=== PATIENT | female | born 1960 | race African-American/Black ===

== ENCOUNTER 2016-11-16 13:44 | Inpatient (IN) | payer MEDICARE, OTHER ==
[~2016-11-16] VITALS: Ht 170.2 cm; Wt 95.3 kg
[2016-11-16] MEDS ORDERED: IV NORMAL SALINE 1000ML BAG 1,000 ML IV ONE ×4 (15:45→17:30)
--- NOTE | 2016-11-16 15:50 | PHYS DOC ---
Past Medical History Past Medical History: Diabetes-Type II, Hypertension Adult General Chief Complaint Chief Complaint: LOWER EXTREMITY SWELLING HPI HPI Patient is a 55 year old female with history of uncontrolled diabetes type 2, hypertension, who presents today with 2 complaints. Patient's complaining of bilateral lower extremity swelling that has been going on for the last 2 or 3 days. Patient denies any injury. Patient states she's had similar event before. Denies any history of heart failure. Patient's also complaining of sores on her buttocks that she states she noticed a small morning. Patient denies any known injury. Denies any drainage from the areas. Denies any history of MRSA. She states she does not have a PCP and does not take any medications. Review of Systems Review of Systems Constitutional: Denies fever or chills [] Eyes: Denies change in visual acuity, redness, or eye pain [] HENT: Denies nasal congestion or sore throat [] Respiratory: Denies cough or shortness of breath [] Cardiovascular: Bilateral lower extremity swelling GI: Denies abdominal pain, nausea, vomiting, bloody stools or diarrhea [] : Denies dysuria or hematuria [] Musculoskeletal: Denies back pain or joint pain [] Integument: Sores on her buttocks Neurologic: Denies headache, focal weakness or sensory changes [] Endocrine: Denies polyuria or polydipsia [] Current Medications Current Medications Current Medications Medications (Trade) Dose Ordered Sig/Jean Start Time Stop Time Status Last Admin Dose Admin Sodium Chloride 1,000 ml @ 1,000 mls/hr 1X ONCE 11/16/16 16:45 11/16/16 17:44 DC 11/16/16 18:00 1,000 MLS/HR Allergies Allergies Allergies Coded Allergies Type Severity Reaction Last Updated Verified No Known Drug Allergies 11/16/16 No Physical Exam Physical Exam Constitutional: Well developed, well nourished, no acute distress, non-toxic appearance. [] HENT: Normocephalic, atraumatic, bilateral external ears normal, oropharynx moist, no oral exudates, nose normal. [] Eyes: PERRLA, EOMI, conjunctiva normal, no discharge. [] Neck: Normal range of motion, no tenderness, supple, no stridor. [] Cardiovascular:Heart rate regular rhythm, no murmur [] Lungs & Thorax: Bilateral breath sounds clear to auscultation [] Abdomen: Bowel sounds normal, soft, no tenderness, no masses, no pulsatile masses. [] Skin: Warm, dry, buttocks with multiple old wounds. stage two ulcers on buttocks , left buttock 3X0.4cm,,2X0.3cm, right buttock 2X1cm, 2X1cm, 1X1 cm, crack of buttock 0.5 cm 0.2 cm and 1X0.1 cm. None of the areas appear infected. Back: No tenderness, no CVA tenderness. [] Extremities: No tenderness, no cyanosis, no clubbing, ROM intact, bilateral lower extremities with +3 edema. Neurologic: Alert and oriented X 3, normal motor function, normal sensory function, no focal deficits noted. [] Psychologic: Affect normal, judgement normal, mood normal. [] Current Patient Data Vital Signs Vital Signs Date Time Temp Pulse Resp B/P (MAP) Pulse Ox O2 Delivery O2 Flow Rate FiO2 11/16/16 17:00 76 154/77 (102) Room Air 11/16/16 16:30 98 11/16/16 15:15 98.5 18 98.5 Lab Values Laboratory Tests Test 11/16/16 15:33 11/16/16 15:40 Urine Collection Type Unknown Urine Color Yellow Urine Clarity Clear Urine pH 7.0 Urine Specific [place] >=1.030 Urine Protein Negative mg/dL (NEG-TRACE) Urine Glucose (UA) >=1000 mg/dL (NEG) Urine Ketones (Stick) Negative mg/dL (NEG) Urine Blood Negative (NEG) Urine Nitrite Negative (NEG) Urine Bilirubin Negative (NEG) Urine Urobilinogen Dipstick 0.2 mg/dL (0.2 mg/dL) Urine Leukocyte Esterase Negative (NEG) Urine RBC 0 /HPF (0-2) Urine WBC 1-4 /HPF (0-4) Urine Squamous Epithelial Cells Few /LPF Urine Amorphous Sediment Present /HPF Urine Bacteria Few /HPF (0-FEW) Urine Opiates Screen Neg (NEG) Urine Methadone Screen Neg (NEG) Urine Barbiturates Neg (NEG) Urine Phencyclidine Screen Neg (NEG) Urine Amphetamine/Methamphetamine Neg (NEG) Urine Benzodiazepines Screen Neg (NEG) Urine Cocaine Screen Pos (NEG) Urine Cannabinoids Screen Neg (NEG) Urine Ethyl Alcohol Neg (NEG) White Blood Count 7.7 x10^3/uL (4.0-11.0) Red Blood Count 4.90 x10^6/uL (3.50-5.40) Hemoglobin 14.2 g/dL (12.0-15.5) Hematocrit 44.1 % (36.0-47.0) Mean Corpuscular Volume 90 fL (79-100) Mean Corpuscular Hemoglobin 29 pg (25-35) Mean Corpuscular Hemoglobin Concent 32 g/dL (31-37) Red Cell Distribution Width 14.0 % (11.5-14.5) Platelet Count 193 x10^3/uL (140-400) Neutrophils (%) (Auto) 72 % (31-73) Lymphocytes (%) (Auto) 20 % (24-48) L Monocytes (%) (Auto) 6 % (0-9) Eosinophils (%) (Auto) 1 % (0-3) Basophils (%) (Auto) 1 % (0-3) Neutrophils # (Auto) 5.6 x10^3uL (1.8-7.7) Lymphocytes # (Auto) 1.6 x10^3/uL (1.0-4.8) Monocytes # (Auto) 0.4 x10^3/uL (0.0-1.1) Eosinophils # (Auto) 0.1 x10^3/uL (0.0-0.7) Basophils # (Auto) 0.1 x10^3/uL (0.0-0.2) Prothrombin Time 11.1 SEC (11.7-14.0) L Prothrombin Time INR 0.9 (0.8-1.1) Sodium Level 134 mmol/L (136-145) L Potassium Level 4.0 mmol/L (3.5-5.1) Chloride Level 97 mmol/L (98-107) L Carbon Dioxide Level 32 mmol/L (21-32) Anion Gap 5 (6-14) L Blood Urea Nitrogen 10 mg/dL (7-20) Creatinine 1.0 mg/dL (0.6-1.0) Estimated GFR (Cockcroft-Gault) 70.2 BUN/Creatinine Ratio 10 (6-20) Glucose Level 588 mg/dL (70-99) *H Calcium Level 9.6 mg/dL (8.5-10.1) Magnesium Level 2.1 mg/dL (1.8-2.4) Total Bilirubin 0.3 mg/dL (0.2-1.0) Aspartate Amino Transferase (AST) 12 U/L (15-37) L Alanine Aminotransferase (ALT) 21 U/L (14-59) Alkaline Phosphatase 200 U/L (46-116) H Creatine Kinase 135 U/L (26-192) Creatine Kinase MB (Mass) 0.9 ng/mL (0.0-3.6) Creatine Kinase MB Relative Index 0.7 % (0-4) Troponin I Quantitative 0.018 ng/mL (0.000-0.055) GI-Swv-S-Type Natriuretic Peptide 29 pg/mL (0-124) Total Protein 8.2 g/dL (6.4-8.2) Albumin 3.3 g/dL (3.4-5.0) L Albumin/Globulin Ratio 0.7 (1.0-1.7) L Laboratory Tests 11/16/16 15:40 Laboratory Tests 11/16/16 15:40 EKG EKG 16:[address] Stuart, sinus rhythm, leftward axis heart rate 73 no STEMI Radiology/Procedures Radiology/Procedures []PROCEDURE: PORTABLE CHEST 1V Portable chest, 11/16/2016: History: Leg swelling The heart size and pulmonary vascularity are normal. No pulmonary infiltrates are seen. There is no evidence of pleural fluid. Mild spurring is present in the spine. IMPRESSION: No acute cardiopulmonary abnormality is detected. DICTATED and SIGNED BY: PHILIPP MACIEL MD DATE: 11/16/16 1612 CC: MART LIRA [employer]; NO PCP ~ Course & Med Decision Making Course & Med Decision Making Pertinent Labs and Imaging studies reviewed. (See chart for details) This is a 55-year-old female patient with history of diabetes type 2 and hypertension who presents today with bilateral lower extremity swelling and wounds on her buttocks. She states the swelling has been there for 2 days and she noted the wounds today on her buttocks. The wounds appear old. CBC with no acute findings, CMP with glucose of 588, anion gap is 5, patient is in hyperosmolar hyperglycemic state. BNP is normal chest xray was negative for any acute findings. Troponin is normal, CK-MB is normal. Urine with no infection , no ketones. Patient was given 3 L of IV fluids in the ED and admitted with more IV fluids. 17:[address] Hdez was accepted patient for admission. Dragon Disclaimer Dragon Disclaimer This electronic medical record was generated, in whole or in part, using a voice recognition dictation system. Departure Departure Impression: Primary Impression: Hyperosmolarity syndrome Additional Impressions: Hyperglycemia Wound, open, buttock Disposition: 09 ADMITTED INPATIENT Condition: STABLE Problem Qualifiers Additional Impressions: Wound, open, buttock Encounter type: initial encounter Laterality: unspecified laterality Qualified Codes: S31.809A - Unspecified open wound of unspecified buttock, initial encounter MART LIRA [employer] Nov 16, 2016 15:50
[2016-11-16 15:57] LABS: BASO # 0.1 x10^3/uL (0.0-0.2); BASO % 1 % (0-3); EOS % 1 % (0-3); HEMATOCRIT 44.1 % (36.0-47.0); HEMOGLOBIN 14.2 g/dL (12.0-15.5); LYMPH # 1.6 x10^3/uL (1.0-4.8); LYMPH % 20 % (24-48); MEAN CORPUSCULAR HEMOGLOBIN 29 pg (25-35); MEAN CORPUSCULAR HGB CONC 32 g/dL (31-37); MEAN CORPUSCULAR VOLUME 90 fL (79-100); MONO % 6 % (0-9); NEUT % 72 % (31-73); PLATELET COUNT 193 x10^3/uL (140-400); WHITE BLOOD COUNT 7.7 x10^3/uL (4.0-11.0)
[2016-11-16 15:59] LABS: BILIRUBIN,URINE NEGATIVE (NEG); GLUCOSE,URINE >=1000 mg/dL (NEG)
[2016-11-16 16:00] LABS: NITRITE,URINE NEGATIVE (NEG); PROTEIN,URINE NEGATIVE (NEG-TRACE); UROBILINOGEN,URINE 0.2 mg/dL (0.2 mg/dL)
[2016-11-16 16:04] LABS: BACTERIA,URINE FEW /HPF (0-FEW); RBC,URINE 0 /HPF (0-2); SQUAMOUS EPITHELIAL CELL,UR FEW /LPF
[2016-11-16 16:06] LABS: INR 0.9 (0.8-1.1); PROTHROMBIN TIME PATIENT 11.1 SEC (11.7-14.0)
[2016-11-16 16:06] LABS: BARBITURATES NEG (NEG); BENZODIAZEPINES NEG (NEG); CANNABINOIDS NEG (NEG); COCAINE POS (NEG); METHADONE NEG (NEG); OPIATES NEG (NEG); PHENCYCLIDINE NEG (NEG)
--- NOTE | 2016-11-16 16:15 | RAD ---
Portable chest, 11/16/2016: History: Leg swelling The heart size and pulmonary vascularity are normal. No pulmonary infiltrates are seen. There is no evidence of pleural fluid. Mild spurring is present in the spine. IMPRESSION: No acute cardiopulmonary abnormality is detected.
[2016-11-16 16:35] LABS: ALBUMIN 3.3 g/dL (3.4-5.0); ALBUMIN/GLOBULIN RATIO 0.7 (1.0-1.7); CALCIUM 9.6 mg/dL (8.5-10.1); GFR 70.2; TOTAL BILIRUBIN 0.3 mg/dL (0.2-1.0); TOTAL PROTEIN 8.2 g/dL (6.4-8.2)
[2016-11-16 16:36] LABS: CKMB MASS 0.9 ng/mL (0.0-3.6)
[2016-11-16] MEDS ORDERED: INSULIN ASPART 300 UNITS/3 ML INSULN.PEN SQ SCH (17:21)
[2016-11-16] MEDS ORDERED: MORPHINE SULFATE 2 MG/ML DISP.SYRIN. IV PRN (17:30)
[2016-11-16] MEDS ORDERED: ONDANSETRON PF 4 MG/2 ML VIAL. IV PRN (17:30)
[2016-11-16] MEDS ORDERED: DEXTROSE 50% 25 GM / 50ML DISP.SYRIN. IV PRN ×2 (17:30→23:45)
--- NOTE | 2016-11-16 17:38 | EKG ---
[facility] [address] [place] [address] Test Date: 2016-11-16 Test Time: 16:24:02 Pat Name: ALPHONSO VILLARREAL Department: Room: Gender: F Professor Of Surgery: : 1960 Requested By: MART LIRA Order Number: [id number] Reading MD: Measurements Intervals Wing Rate: 73 P: 0 MO: 148 QRS: -9 QRSD: 86 T: 34 QT: 406 QTc: 451 Interpretive Statements SINUS RHYTHM LEFTWARD AXIS QRS(T) CONTOUR ABNORMALITY CONSIDER ANTEROSEPTAL MYOCARDIAL DAMAGE POSSIBLY ABNORMAL ECG RI6.01 No previous ECG available for comparison
[2016-11-16] MEDS ORDERED: ASEN10TA9 PO (21:13)
[2016-11-16] MEDS ORDERED: INSULIN ASPART 300 UNITS/3 ML INSULN.PEN SQ ONE (21:45)
[2016-11-16 23:00] VITALS: BP 150/76
[2016-11-16] MEDS: ZOLPIDEM 5 MG TABLET. PO PRN (23:43)
--- NOTE | 2016-11-17 01:27 | HP ---
ADMIT DATE: 11/16/2016 CHIEF COMPLAINT: Bilateral lower extremity swelling. HISTORY OF PRESENT ILLNESS: The patient is a 55-year-old -[place] woman who presents with hypertension, diabetes as well as depression and insomnia, who presented to the Emergency Room with worsening lower extremity swelling. She relates that this has been going on for a couple of days at least. She denies any injuries or other symptoms. She actually had similar events in the past, but denies any history of heart failure. Also had sores on the area of her buttocks without any draining. She is unaware of having injured herself. Denies any history of MRSA. In the Emergency Room, she was found with glucose of greater than 500. She relates that she has moved from [place], [place] to [place] and has not sought medical attention since then. Over the past three months, she has not had any of her medications except for her psychiatric medications, which she apparently gets from [facility]. PAST MEDICAL HISTORY: Diabetes and hypertension. FAMILY HISTORY: Positive for same. SOCIAL HISTORY: Denies any alcohol or drug use, but smokes about half a pack a day. ALLERGIES: No known drug allergies. HOME MEDICATIONS: Reconciled with [facility]. REVIEW OF SYSTEMS: Positive as per HPI. Rest of organ system review is negative. PHYSICAL EXAMINATION: VITAL SIGNS: From today show a blood pressure of 177/99, heart rate of 80 and respiratory rate at 10. She is afebrile. GENERAL: This is an obese 55-year-old -[place] woman, awake, alert, in no acute distress. HEENT: Shows no scleral icterus. Oral mucosa is pink and moist. NECK: Supple. LUNGS: Clear. HEART: Regular rate and rhythm. ABDOMEN: Has positive bowel sounds. EXTREMITIES: Show 1+ pitting edema bilaterally. SKIN: Warm, soft and dry without any rash. LABORATORY DATA: CBC with a WBC of 7.7, hemoglobin 14.2 and platelets of 193. Chemistries with a BUN and creatinine of 10 and 1. Sodium at 134, potassium 4.0, glucose at 588, alkaline phosphatase at 200, transaminases within normal and albumin at 3.3. Tox screen positive for cocaine. Specific gravity on her urine greater than 1.030. No signs of infection. IMAGING STUDIES: Chest x-ray obtained in the Emergency Room shows no acute cardiopulmonary abnormality. ASSESSMENT AND PLAN: The patient is a 55-year-old woman with severe diabetes due to not getting her medications. We will start on insulin fairly steep scale. We will switch to oral glipizide in the morning. This is the four dollar medication that she should be able to afford. We will continue her home psych medications including Cymbalta and will receive Ambien for sleep as her home medication is not available in our formulary. Once glucoses are fairly well controlled, the patient should be able to be discharged with followup with PCP DUSTIN. GIULIA TOLENTINO MD DR: UR/nts JOB#: [id number] / [id number] ISAC
[2016-11-17 03:00] VITALS: BP 147/75
[2016-11-17 07:00] VITALS: BP 145/73
[2016-11-17 08:21] LABS: BASO % 1 % (0-3); EOS % 2 % (0-3); HEMATOCRIT 37.1 % (36.0-47.0); HEMOGLOBIN 11.9 g/dL (12.0-15.5); LYMPH % 28 % (24-48); MEAN CORPUSCULAR HEMOGLOBIN 29 pg (25-35); MEAN CORPUSCULAR HGB CONC 32 g/dL (31-37); MEAN CORPUSCULAR VOLUME 89 fL (79-100); MONO % 6 % (0-9); NEUT % 64 % (31-73); PLATELET COUNT 163 x10^3/uL (140-400); RED BLOOD COUNT 4.15 x10^6/uL (3.50-5.40); RED CELL DISTRIBUTION WIDTH 13.9 % (11.5-14.5); WHITE BLOOD COUNT 7.1 x10^3/uL (4.0-11.0)
[2016-11-17 08:40] LABS: CALCIUM 8.6 mg/dL (8.5-10.1); CREATININE 0.6 mg/dL (0.6-1.0); GFR 126.5; POTASSIUM 3.6 mmol/L (3.5-5.1)
[2016-11-17] MEDS: glipiZIDE 5 MG TABLET PO SCH ×2 (08:45→17:28)
[2016-11-17] MEDS: ACETAMINOPHEN 325 MG TABLET. PO PRN ×2 (08:45→14:56)
[2016-11-17] MEDS: DULoxetine HCL 30 MG CAPSULE.DR PO SCH (08:45)
[2016-11-17] MEDS: INSULIN ASPART 300 UNITS/3 ML INSULN.PEN SQ SCH ×3 (08:50→17:32)
[2016-11-17] MEDS ORDERED: FLU VACC QS2017-18 (36MOS+)/PF 0.5 ML SYRINGE. VAX IM ONE (09:00)
[2016-11-17] MEDS ORDERED: LISINOPRIL 10 MG TABLET PO SCH (09:00)
[2016-11-17] MEDS ORDERED: INFLUENZA VAX SCREEN BY RX. MC ONE (09:00)
[2016-11-17 11:00] VITALS: BP 146/76
[2016-11-17] MEDS ORDERED: DEXTROSE 50% 25 GM / 50ML DISP.SYRIN. IV PRN (12:30)
[2016-11-17] MEDS ORDERED: ONDANSETRON PF 4 MG/2 ML VIAL. IV PRN (14:15)
[2016-11-17] MEDS ORDERED: ACETAMINOPHEN 325 MG TABLET. PO PRN (14:15)
[2016-11-17] MEDS ORDERED: hydrALAZINE 20 MG/ML VIAL. IVP PRN (14:15)
[2016-11-17] MEDS ORDERED: DOCUSATE SODIUM 100 MG CAPSULE. PO PRN (14:15)
[2016-11-17] MEDS ORDERED: MORPHINE SULFATE 2 MG/ML DISP.SYRIN. IV PRN (14:15)
--- NOTE | 2016-11-17 14:18 | PDOC ---
PROGRESS NOTES Chief Complaint Chief Complaint bl buttock superficial wound , + gram + cocci uncontrolled dm2 accerlerated htn drug abuse with cocaine plan: check hba1c cont glipizide, add levmier 10u qhs, ssi wound care add bactrium add lisinopril 20mg daily dvt ppx History of Present Illness History of Present Illness ROS: no fever, chills, sob or chest pain hyperglycemia bl buttock superficial wound Vitals Vitals Vital Signs Date Time Temp Pulse Resp B/P (MAP) Pulse Ox O2 Delivery O2 Flow Rate FiO2 11/17/16 11:00 97.5 69 20 146/76 (99) 97 Room Air 97.5 Physical Exam General: Alert, Oriented X3, Cooperative Heart: Regular rate, Normal S1, Normal S2 Lungs: Clear, Wheezing Abdomen: Normal bowel sounds, Soft Extremities: No clubbing, No cyanosis Skin: Other (bl small superfical buttock wound ) Labs LABS Laboratory Tests Test 11/16/16 15:33 11/16/16 15:40 11/16/16 17:48 11/16/16 19:17 Urine Collection Type Unknown Urine Color Yellow Urine Clarity Clear Urine pH 7.0 Urine Specific Gilman >=1.030 Urine Protein Negative mg/dL (NEG-TRACE) Urine Glucose (UA) >=1000 mg/dL (NEG) Urine Ketones (Stick) Negative mg/dL (NEG) Urine Blood Negative (NEG) Urine Nitrite Negative (NEG) Urine Bilirubin Negative (NEG) Urine Urobilinogen Dipstick 0.2 mg/dL (0.2 mg/dL) Urine Leukocyte Esterase Negative (NEG) Urine RBC 0 /HPF (0-2) Urine WBC 1-4 /HPF (0-4) Urine Squamous Epithelial Cells Few /LPF Urine Amorphous Sediment Present /HPF Urine Bacteria Few /HPF (0-FEW) Urine Opiates Screen Neg (NEG) Urine Methadone Screen Neg (NEG) Urine Barbiturates Neg (NEG) Urine Phencyclidine Screen Neg (NEG) Urine Amphetamine/Methamphetamine Neg (NEG) Urine Benzodiazepines Screen Neg (NEG) Urine Cocaine Screen Pos (NEG) Urine Cannabinoids Screen Neg (NEG) Urine Ethyl Alcohol Neg (NEG) White Blood Count 7.7 x10^3/uL (4.0-11.0) Red Blood Count 4.90 x10^6/uL (3.50-5.40) Hemoglobin 14.2 g/dL (12.0-15.5) Hematocrit 44.1 % (36.0-47.0) Mean Corpuscular Volume 90 fL (79-100) Mean Corpuscular Hemoglobin 29 pg (25-35) Mean Corpuscular Hemoglobin Concent 32 g/dL (31-37) Red Cell Distribution Width 14.0 % (11.5-14.5) Platelet Count 193 x10^3/uL (140-400) Neutrophils (%) (Auto) 72 % (31-73) Lymphocytes (%) (Auto) 20 % (24-48) Monocytes (%) (Auto) 6 % (0-9) Eosinophils (%) (Auto) 1 % (0-3) Basophils (%) (Auto) 1 % (0-3) Neutrophils # (Auto) 5.6 x10^3uL (1.8-7.7) Lymphocytes # (Auto) 1.6 x10^3/uL (1.0-4.8) Monocytes # (Auto) 0.4 x10^3/uL (0.0-1.1) Eosinophils # (Auto) 0.1 x10^3/uL (0.0-0.7) Basophils # (Auto) 0.1 x10^3/uL (0.0-0.2) Prothrombin Time 11.1 SEC (11.7-14.0) Prothromb Time International Ratio 0.9 (0.8-1.1) Sodium Level 134 mmol/L (136-145) Potassium Level 4.0 mmol/L (3.5-5.1) Chloride Level 97 mmol/L (98-107) Carbon Dioxide Level 32 mmol/L (21-32) Anion Gap 5 (6-14) Blood Urea Nitrogen 10 mg/dL (7-20) Creatinine 1.0 mg/dL (0.6-1.0) Estimated GFR (Cockcroft-Gault) 70.2 BUN/Creatinine Ratio 10 (6-20) Glucose Level 588 mg/dL (70-99) Calcium Level 9.6 mg/dL (8.5-10.1) Magnesium Level 2.1 mg/dL (1.8-2.4) Total Bilirubin 0.3 mg/dL (0.2-1.0) Aspartate Amino Transf (AST/SGOT) 12 U/L (15-37) Alanine Aminotransferase (ALT/SGPT) 21 U/L (14-59) Alkaline Phosphatase 200 U/L (46-116) Creatine Kinase 135 U/L (26-192) Creatine Kinase MB (Mass) 0.9 ng/mL (0.0-3.6) Creatine Kinase MB Relative Index 0.7 % (0-4) Troponin I Quantitative 0.018 ng/mL (0.000-0.055) BJ-Hcx-W-Type Natriuretic Peptide 29 pg/mL (0-124) Total Protein 8.2 g/dL (6.4-8.2) Albumin 3.3 g/dL (3.4-5.0) Albumin/Globulin Ratio 0.7 (1.0-1.7) Glucose (Fingerstick) 380 mg/dL (70-99) 369 mg/dL (70-99) Test 11/16/16 20:42 11/17/16 07:44 11/17/16 07:46 11/17/16 11:35 Glucose (Fingerstick) 328 mg/dL (70-99) 207 mg/dL (70-99) 209 mg/dL (70-99) White Blood Count 7.1 x10^3/uL (4.0-11.0) Red Blood Count 4.15 x10^6/uL (3.50-5.40) Hemoglobin 11.9 g/dL (12.0-15.5) Hematocrit 37.1 % (36.0-47.0) Mean Corpuscular Volume 89 fL (79-100) Mean Corpuscular Hemoglobin 29 pg (25-35) Mean Corpuscular Hemoglobin Concent 32 g/dL (31-37) Red Cell Distribution Width 13.9 % (11.5-14.5) Platelet Count 163 x10^3/uL (140-400) Neutrophils (%) (Auto) 64 % (31-73) Lymphocytes (%) (Auto) 28 % (24-48) Monocytes (%) (Auto) 6 % (0-9) Eosinophils (%) (Auto) 2 % (0-3) Basophils (%) (Auto) 1 % (0-3) Neutrophils # (Auto) 4.6 x10^3uL (1.8-7.7) Lymphocytes # (Auto) 2.0 x10^3/uL (1.0-4.8) Monocytes # (Auto) 0.4 x10^3/uL (0.0-1.1) Eosinophils # (Auto) 0.1 x10^3/uL (0.0-0.7) Basophils # (Auto) 0.0 x10^3/uL (0.0-0.2) Sodium Level 138 mmol/L (136-145) Potassium Level 3.6 mmol/L (3.5-5.1) Chloride Level 105 mmol/L (98-107) Carbon Dioxide Level 29 mmol/L (21-32) Anion Gap 4 (6-14) Blood Urea Nitrogen 6 mg/dL (7-20) Creatinine 0.6 mg/dL (0.6-1.0) Estimated GFR (Cockcroft-Gault) 126.5 Glucose Level 220 mg/dL (70-99) Calcium Level 8.6 mg/dL (8.5-10.1) Assessment and Plan Assessmemt and Plan Problems Medical Problems: (1) Wound, open, buttock Status: Acute Problems: Comment Review of Relevant I have reviewed the following items luther (where applicable) has been applied. Labs Laboratory Tests Test 11/16/16 15:33 11/16/16 15:40 11/16/16 17:48 11/16/16 19:17 Urine Collection Type Unknown Urine Color Yellow Urine Clarity Clear Urine pH 7.0 Urine Specific Gilman >=1.030 Urine Protein Negative mg/dL (NEG-TRACE) Urine Glucose (UA) >=1000 mg/dL (NEG) Urine Ketones (Stick) Negative mg/dL (NEG) Urine Blood Negative (NEG) Urine Nitrite Negative (NEG) Urine Bilirubin Negative (NEG) Urine Urobilinogen Dipstick 0.2 mg/dL (0.2 mg/dL) Urine Leukocyte Esterase Negative (NEG) Urine RBC 0 /HPF (0-2) Urine WBC 1-4 /HPF (0-4) Urine Squamous Epithelial Cells Few /LPF Urine Amorphous Sediment Present /HPF Urine Bacteria Few /HPF (0-FEW) Urine Opiates Screen Neg (NEG) Urine Methadone Screen Neg (NEG) Urine Barbiturates Neg (NEG) Urine Phencyclidine Screen Neg (NEG) Urine Amphetamine/Methamphetamine Neg (NEG) Urine Benzodiazepines Screen Neg (NEG) Urine Cocaine Screen Pos (NEG) Urine Cannabinoids Screen Neg (NEG) Urine Ethyl Alcohol Neg (NEG) White Blood Count 7.7 x10^3/uL (4.0-11.0) Red Blood Count 4.90 x10^6/uL (3.50-5.40) Hemoglobin 14.2 g/dL (12.0-15.5) Hematocrit 44.1 % (36.0-47.0) Mean Corpuscular Volume 90 fL (79-100) Mean Corpuscular Hemoglobin 29 pg (25-35) Mean Corpuscular Hemoglobin Concent 32 g/dL (31-37) Red Cell Distribution Width 14.0 % (11.5-14.5) Platelet Count 193 x10^3/uL (140-400) Neutrophils (%) (Auto) 72 % (31-73) Lymphocytes (%) (Auto) 20 % (24-48) Monocytes (%) (Auto) 6 % (0-9) Eosinophils (%) (Auto) 1 % (0-3) Basophils (%) (Auto) 1 % (0-3) Neutrophils # (Auto) 5.6 x10^3uL (1.8-7.7) Lymphocytes # (Auto) 1.6 x10^3/uL (1.0-4.8) Monocytes # (Auto) 0.4 x10^3/uL (0.0-1.1) Eosinophils # (Auto) 0.1 x10^3/uL (0.0-0.7) Basophils # (Auto) 0.1 x10^3/uL (0.0-0.2) Prothrombin Time 11.1 SEC (11.7-14.0) Prothromb Time International Ratio 0.9 (0.8-1.1) Sodium Level 134 mmol/L (136-145) Potassium Level 4.0 mmol/L (3.5-5.1) Chloride Level 97 mmol/L (98-107) Carbon Dioxide Level 32 mmol/L (21-32) Anion Gap 5 (6-14) Blood Urea Nitrogen 10 mg/dL (7-20) Creatinine 1.0 mg/dL (0.6-1.0) Estimated GFR (Cockcroft-Gault) 70.2 BUN/Creatinine Ratio 10 (6-20) Glucose Level 588 mg/dL (70-99) Calcium Level 9.6 mg/dL (8.5-10.1) Magnesium Level 2.1 mg/dL (1.8-2.4) Total Bilirubin 0.3 mg/dL (0.2-1.0) Aspartate Amino Transf (AST/SGOT) 12 U/L (15-37) Alanine Aminotransferase (ALT/SGPT) 21 U/L (14-59) Alkaline Phosphatase 200 U/L (46-116) Creatine Kinase 135 U/L (26-192) Creatine Kinase MB (Mass) 0.9 ng/mL (0.0-3.6) Creatine Kinase MB Relative Index 0.7 % (0-4) Troponin I Quantitative 0.018 ng/mL (0.000-0.055) DT-Tnx-Q-Type Natriuretic Peptide 29 pg/mL (0-124) Total Protein 8.2 g/dL (6.4-8.2) Albumin 3.3 g/dL (3.4-5.0) Albumin/Globulin Ratio 0.7 (1.0-1.7) Glucose (Fingerstick) 380 mg/dL (70-99) 369 mg/dL (70-99) Test 11/16/16 20:42 11/17/16 07:44 11/17/16 07:46 11/17/16 11:35 Glucose (Fingerstick) 328 mg/dL (70-99) 207 mg/dL (70-99) 209 mg/dL (70-99) White Blood Count 7.1 x10^3/uL (4.0-11.0) Red Blood Count 4.15 x10^6/uL (3.50-5.40) Hemoglobin 11.9 g/dL (12.0-15.5) Hematocrit 37.1 % (36.0-47.0) Mean Corpuscular Volume 89 fL (79-100) Mean Corpuscular Hemoglobin 29 pg (25-35) Mean Corpuscular Hemoglobin Concent 32 g/dL (31-37) Red Cell Distribution Width 13.9 % (11.5-14.5) Platelet Count 163 x10^3/uL (140-400) Neutrophils (%) (Auto) 64 % (31-73) Lymphocytes (%) (Auto) 28 % (24-48) Monocytes (%) (Auto) 6 % (0-9) Eosinophils (%) (Auto) 2 % (0-3) Basophils (%) (Auto) 1 % (0-3) Neutrophils # (Auto) 4.6 x10^3uL (1.8-7.7) Lymphocytes # (Auto) 2.0 x10^3/uL (1.0-4.8) Monocytes # (Auto) 0.4 x10^3/uL (0.0-1.1) Eosinophils # (Auto) 0.1 x10^3/uL (0.0-0.7) Basophils # (Auto) 0.0 x10^3/uL (0.0-0.2) Sodium Level 138 mmol/L (136-145) Potassium Level 3.6 mmol/L (3.5-5.1) Chloride Level 105 mmol/L (98-107) Carbon Dioxide Level 29 mmol/L (21-32) Anion Gap 4 (6-14) Blood Urea Nitrogen 6 mg/dL (7-20) Creatinine 0.6 mg/dL (0.6-1.0) Estimated GFR (Cockcroft-Gault) 126.5 Glucose Level 220 mg/dL (70-99) Calcium Level 8.6 mg/dL (8.5-10.1) Laboratory Tests Test 11/16/16 15:33 11/16/16 15:40 11/16/16 17:48 11/16/16 19:17 Urine Collection Type Unknown Urine Color Yellow Urine Clarity Clear Urine pH 7.0 Urine Specific Gilman >=1.030 Urine Protein Negative mg/dL (NEG-TRACE) Urine Glucose (UA) >=1000 mg/dL (NEG) Urine Ketones (Stick) Negative mg/dL (NEG) Urine Blood Negative (NEG) Urine Nitrite Negative (NEG) Urine Bilirubin Negative (NEG) Urine Urobilinogen Dipstick 0.2 mg/dL (0.2 mg/dL) Urine Leukocyte Esterase Negative (NEG) Urine RBC 0 /HPF (0-2) Urine WBC 1-4 /HPF (0-4) Urine Squamous Epithelial Cells Few /LPF Urine Amorphous Sediment Present /HPF Urine Bacteria Few /HPF (0-FEW) Urine Opiates Screen Neg (NEG) Urine Methadone Screen Neg (NEG) Urine Barbiturates Neg (NEG) Urine Phencyclidine Screen Neg (NEG) Urine Amphetamine/Methamphetamine Neg (NEG) Urine Benzodiazepines Screen Neg (NEG) Urine Cocaine Screen Pos (NEG) Urine Cannabinoids Screen Neg (NEG) Urine Ethyl Alcohol Neg (NEG) White Blood Count 7.7 x10^3/uL (4.0-11.0) Red Blood Count 4.90 x10^6/uL (3.50-5.40) Hemoglobin 14.2 g/dL (12.0-15.5) Hematocrit 44.1 % (36.0-47.0) Mean Corpuscular Volume 90 fL (79-100) Mean Corpuscular Hemoglobin 29 pg (25-35) Mean Corpuscular Hemoglobin Concent 32 g/dL (31-37) Red Cell Distribution Width 14.0 % (11.5-14.5) Platelet Count 193 x10^3/uL (140-400) Neutrophils (%) (Auto) 72 % (31-73) Lymphocytes (%) (Auto) 20 % (24-48) Monocytes (%) (Auto) 6 % (0-9) Eosinophils (%) (Auto) 1 % (0-3) Basophils (%) (Auto) 1 % (0-3) Neutrophils # (Auto) 5.6 x10^3uL (1.8-7.7) Lymphocytes # (Auto) 1.6 x10^3/uL (1.0-4.8) Monocytes # (Auto) 0.4 x10^3/uL (0.0-1.1) Eosinophils # (Auto) 0.1 x10^3/uL (0.0-0.7) Basophils # (Auto) 0.1 x10^3/uL (0.0-0.2) Prothrombin Time 11.1 SEC (11.7-14.0) Prothromb Time International Ratio 0.9 (0.8-1.1) Sodium Level 134 mmol/L (136-145) Potassium Level 4.0 mmol/L (3.5-5.1) Chloride Level 97 mmol/L (98-107) Carbon Dioxide Level 32 mmol/L (21-32) Anion Gap 5 (6-14) Blood Urea Nitrogen 10 mg/dL (7-20) Creatinine 1.0 mg/dL (0.6-1.0) Estimated GFR (Cockcroft-Gault) 70.2 BUN/Creatinine Ratio 10 (6-20) Glucose Level 588 mg/dL (70-99) Calcium Level 9.6 mg/dL (8.5-10.1) Magnesium Level 2.1 mg/dL (1.8-2.4) Total Bilirubin 0.3 mg/dL (0.2-1.0) Aspartate Amino Transf (AST/SGOT) 12 U/L (15-37) Alanine Aminotransferase (ALT/SGPT) 21 U/L (14-59) Alkaline Phosphatase 200 U/L (46-116) Creatine Kinase 135 U/L (26-192) Creatine Kinase MB (Mass) 0.9 ng/mL (0.0-3.6) Creatine Kinase MB Relative Index 0.7 % (0-4) Troponin I Quantitative 0.018 ng/mL (0.000-0.055) HB-Lff-K-Type Natriuretic Peptide 29 pg/mL (0-124) Total Protein 8.2 g/dL (6.4-8.2) Albumin 3.3 g/dL (3.4-5.0) Albumin/Globulin Ratio 0.7 (1.0-1.7) Glucose (Fingerstick) 380 mg/dL (70-99) 369 mg/dL (70-99) Test 11/16/16 20:42 11/17/16 07:44 11/17/16 07:46 11/17/16 11:35 Glucose (Fingerstick) 328 mg/dL (70-99) 207 mg/dL (70-99) 209 mg/dL (70-99) White Blood Count 7.1 x10^3/uL (4.0-11.0) Red Blood Count 4.15 x10^6/uL (3.50-5.40) Hemoglobin 11.9 g/dL (12.0-15.5) Hematocrit 37.1 % (36.0-47.0) Mean Corpuscular Volume 89 fL (79-100) Mean Corpuscular Hemoglobin 29 pg (25-35) Mean Corpuscular Hemoglobin Concent 32 g/dL (31-37) Red Cell Distribution Width 13.9 % (11.5-14.5) Platelet Count 163 x10^3/uL (140-400) Neutrophils (%) (Auto) 64 % (31-73) Lymphocytes (%) (Auto) 28 % (24-48) Monocytes (%) (Auto) 6 % (0-9) Eosinophils (%) (Auto) 2 % (0-3) Basophils (%) (Auto) 1 % (0-3) Neutrophils # (Auto) 4.6 x10^3uL (1.8-7.7) Lymphocytes # (Auto) 2.0 x10^3/uL (1.0-4.8) Monocytes # (Auto) 0.4 x10^3/uL (0.0-1.1) Eosinophils # (Auto) 0.1 x10^3/uL (0.0-0.7) Basophils # (Auto) 0.0 x10^3/uL (0.0-0.2) Sodium Level 138 mmol/L (136-145) Potassium Level 3.6 mmol/L (3.5-5.1) Chloride Level 105 mmol/L (98-107) Carbon Dioxide Level 29 mmol/L (21-32) Anion Gap 4 (6-14) Blood Urea Nitrogen 6 mg/dL (7-20) Creatinine 0.6 mg/dL (0.6-1.0) Estimated GFR (Cockcroft-Gault) 126.5 Glucose Level 220 mg/dL (70-99) Calcium Level 8.6 mg/dL (8.5-10.1) Microbiology 11/16/16 Gram Stain - Final, Complete Medications Current Medications Sodium Chloride 1,000 ml @ 1,000 mls/hr 1X ONCE IV Last administered on 15:48; Start 11/16/16 at 15:45; Stop 11/16/16 at 16:44; Status DC Sodium Chloride 1,000 ml @ 1,000 mls/hr 1X ONCE IV Last administered on 17:21; Start 11/16/16 at 16:45; Stop 11/16/16 at 17:44; Status DC Sodium Chloride 1,000 ml @ 1,000 mls/hr 1X ONCE IV Last administered on 18:00; Start 11/16/16 at 16:45; Stop 11/16/16 at 17:44; Status DC Ondansetron HCl (Zofran) 4 mg PRN Q8HRS PRN IV NAUSEA/VOMITING; Start 11/16/16 at 17:30; Stop 11/17/16 at 17:29 Morphine Sulfate 2 mg PRN Q2HR PRN IV PAIN; Start 11/16/16 at 17:30; Stop 11/16 at 23:47; Status DC Acetaminophen (Tylenol) 650 mg PRN Q4HRS PRN PO FEVER Last administered on 11/17 08:45; Start 11/16/16 at 17:30; Stop 11/17/16 at 17:29 Insulin Aspart (NovoLOG) 0-5 UNITS TIDWMEALS SQ Last administered on 11/16/16 18:30; Start 11/16/16 at 17:21; Stop 11/16/16 at 23:47; Status DC Dextrose (Dextrose 50%-Water Syringe) 12.5 gm PRN Q15MIN PRN IV SEE COMMENTS; Start 11/16/16 at 17:30; Stop 11/17/16 at 12:31; Status DC Sodium Chloride 1,000 ml @ 125 mls/hr 1X ONCE IV Last administered on 18:00; Start 11/16/16 at 17:30; Stop 11/17/16 at 01:29; Status DC Insulin Aspart (NovoLOG) 3 units 1X ONCE SQ Last administered on 11/16/16 21: 55; Start 11/16/16 at 21:45; Stop 11/16/16 at 21:46; Status DC Zolpidem Tartrate (Ambien) 5 mg PRN QHS PRN PO INSOMNIA Last administered on 23:43; Start 11/16/16 at 23:30 Insulin Aspart (NovoLOG) TIDWMEALS SQ Last administered on 11/17/16 12:18; Start 11/17/16 at 08:00; Stop 11/17/16 at 12:32; Status DC Dextrose (Dextrose 50%-Water Syringe) 12.5 gm PRN Q15MIN PRN IV SEE COMMENTS; Start 11/16/16 at 23:45; Stop 11/17/16 at 12:31; Status DC Duloxetine HCl (Cymbalta) 60 mg DAILY PO Last administered on 11/17/16 08:45; Start 11/17/16 at 09:00 Lisinopril (Prinivil) 10 mg DAILY PO Last administered on 11/17/16 08:45; Start 11/17/16 at 09:00 Glipizide (Glucotrol) 10 mg BIDBFRMEAL PO Last administered on 11/17/16t 08:45 ; Start 11/17/16 at 07:30 Info (Do NOT chart on this placeholder) 1 each 1X ONCE MC ; Start 11/17/16 at 09:00; Stop 11/17/16 at 09:01; Status UNV Influenza Virus Vaccine Quadrival (Fluarix Quad [id number] Syringe) 0.5 ml ONCE ONCE VAX IM ; Start 11/17/16 at 09:00; Stop 11/17/16 at 09:01; Status DC Insulin Detemir (Levemir) 10 units QHS SQ ; Start 11/17/16 at 21:00 Insulin Aspart (NovoLOG) 0-9 UNITS TIDWMEALS SQ ; Start 11/17/16 at 17:00 Dextrose (Dextrose 50%-Water Syringe) 12.5 gm PRN Q15MIN PRN IV SEE COMMENTS; Start 11/17/16 at 12:30 Trimethoprim/ Sulfamethoxazole (Bactrim Ds) 1 tab BID PO ; Start 11/17/16 at 13: 00 Active Scripts Active Reported Saphris (Asenapine Maleate) 10 Mg Tab.subl 110 PO HS Vitals/I & O Vital Sign - Last 24 Hours 11/16/16 11/16/16 11/16/16 11/16/16 15:15 16:30 17:00 17:30 Temp 98.5 98.5 Pulse 89 72 76 Resp 18 B/P (MAP) 122/71 (88) 149/77 (101) 154/77 (102) 160/86 (110) Pulse Ox 96 98 O2 Delivery Room Air Room Air Room Air Room Air 11/16/16 11/16/16 11/16/16 11/16/16 18:00 18:30 20:00 23:00 Temp 97.5 97.5 Pulse 104 80 78 Resp 9 10 16 B/P (MAP) 174/109 (130) 177/99 (125) 150/76 (100) Pulse Ox 96 99 97 O2 Delivery Room Air Room Air Room Air Room Air 11/17/16 11/17/16 11/17/16 11/17/16 03:00 07:00 08:00 08:45 Temp 97.7 98.1 97.7 98.1 Pulse 85 84 84 Resp 16 16 B/P (MAP) 147/75 (99) 145/73 (97) 143/73 Pulse Ox 94 95 O2 Delivery Room Air Room Air Room Air 11/17/16 11:00 Temp 97.5 97.5 Pulse 69 Resp 20 B/P (MAP) 146/76 (99) Pulse Ox 97 O2 Delivery Room Air NAVDEEP KISER MD Nov 17, 2016 14:18
[2016-11-17] MEDS: SMZ/TMP 800/160MG TABLET. PO SCH ×2 (14:55→22:51)
[2016-11-17] MEDS: LISINOPRIL 20 MG TABLET PO SCH (14:55)
[2016-11-17] MEDS: ENOXAPARIN 40 MG/0.4 ML SYRINGE. SQ SCH (14:56)
[2016-11-17 15:22] VITALS: BP 146/76
[2016-11-17 19:00] VITALS: BP 150/69
[2016-11-17] MEDS ORDERED: INSULIN DETEMIR 300 UNITS/3 ML INSULN.PEN. SQ SCH (21:00)
[2016-11-17] MEDS: ZOLPIDEM 5 MG TABLET. PO PRN (22:51)
[2016-11-17 23:00] VITALS: BP 135/72
[2016-11-17] MEDS ORDERED: INSULIN ASPART 300 UNITS/3 ML INSULN.PEN SQ ONE (23:00)
[2016-11-18 03:00] VITALS: BP 144/81
[2016-11-18 05:19] LABS: BASO % 0 % (0-3); EOS % 2 % (0-3); HEMATOCRIT 37.3 % (36.0-47.0); LYMPH # 1.8 x10^3/uL (1.0-4.8); LYMPH % 25 % (24-48); MEAN CORPUSCULAR HEMOGLOBIN 29 pg (25-35); MEAN CORPUSCULAR HGB CONC 32 g/dL (31-37); MEAN CORPUSCULAR VOLUME 89 fL (79-100); MONO % 8 % (0-9); NEUT % 66 % (31-73); PLATELET COUNT 166 x10^3/uL (140-400); RED BLOOD COUNT 4.21 x10^6/uL (3.50-5.40); WHITE BLOOD COUNT 7.2 x10^3/uL (4.0-11.0)
[2016-11-18 05:57] LABS: CALCIUM 8.3 mg/dL (8.5-10.1); CREATININE 0.8 mg/dL (0.6-1.0); GFR 90.8
[2016-11-18 07:00] VITALS: BP 131/60
[2016-11-18] MEDS: SMZ/TMP 800/160MG TABLET. PO SCH ×2 (08:48→20:46)
[2016-11-18] MEDS: LISINOPRIL 20 MG TABLET PO SCH (08:48)
[2016-11-18] MEDS: DULoxetine HCL 30 MG CAPSULE.DR PO SCH (08:48)
[2016-11-18] MEDS: glipiZIDE 5 MG TABLET PO SCH ×2 (08:49→17:02)
[2016-11-18] MEDS: INSULIN ASPART 300 UNITS/3 ML INSULN.PEN SQ SCH ×3 (08:52→17:04)
[2016-11-18 11:00] VITALS: BP 120/63
[2016-11-18] MEDS: ENOXAPARIN 40 MG/0.4 ML SYRINGE. SQ SCH (14:41)
--- NOTE | 2016-11-18 14:44 | PDOC ---
PROGRESS NOTES Chief Complaint Chief Complaint bl buttock superficial wound , + gram + cocci with staph and beta strep for now uncontrolled dm2 accellerated htn drug abuse with cocaine plan: check hba1c cont glipizide, add levmier 15u qhs, ssi. metformin makes her diarrhea wound care pending add bactrium , add vantin add lisinopril 20mg daily dvt ppx dc tmr History of Present Illness History of Present Illness ROS: no fever, chills, sob or chest pain hyperglycemia bl buttock superficial wound Vitals Vitals Vital Signs Date Time Temp Pulse Resp B/P (MAP) Pulse Ox O2 Delivery O2 Flow Rate FiO2 11/18/16 11:00 98.8 74 16 120/63 (82) 97 Room Air 98.8 Physical Exam General: Alert, Oriented X3, Cooperative Heart: Regular rate, Normal S1, Normal S2 Lungs: Clear, Wheezing Abdomen: Normal bowel sounds, Soft Extremities: No clubbing, No cyanosis Skin: Other (bl small superfical buttock wound ) Labs LABS Laboratory Tests Test 11/17/16 17:04 11/17/16 21:31 11/18/16 04:35 11/18/16 07:56 Glucose (Fingerstick) 191 mg/dL (70-99) 244 mg/dL (70-99) 218 mg/dL (70-99) White Blood Count 7.2 x10^3/uL (4.0-11.0) Red Blood Count 4.21 x10^6/uL (3.50-5.40) Hemoglobin 12.0 g/dL (12.0-15.5) Hematocrit 37.3 % (36.0-47.0) Mean Corpuscular Volume 89 fL (79-100) Mean Corpuscular Hemoglobin 29 pg (25-35) Mean Corpuscular Hemoglobin Concent 32 g/dL (31-37) Red Cell Distribution Width 14.0 % (11.5-14.5) Platelet Count 166 x10^3/uL (140-400) Neutrophils (%) (Auto) 66 % (31-73) Lymphocytes (%) (Auto) 25 % (24-48) Monocytes (%) (Auto) 8 % (0-9) Eosinophils (%) (Auto) 2 % (0-3) Basophils (%) (Auto) 0 % (0-3) Neutrophils # (Auto) 4.7 x10^3uL (1.8-7.7) Lymphocytes # (Auto) 1.8 x10^3/uL (1.0-4.8) Monocytes # (Auto) 0.6 x10^3/uL (0.0-1.1) Eosinophils # (Auto) 0.1 x10^3/uL (0.0-0.7) Basophils # (Auto) 0.0 x10^3/uL (0.0-0.2) Sodium Level 137 mmol/L (136-145) Potassium Level 4.0 mmol/L (3.5-5.1) Chloride Level 103 mmol/L (98-107) Carbon Dioxide Level 29 mmol/L (21-32) Anion Gap 5 (6-14) Blood Urea Nitrogen 11 mg/dL (7-20) Creatinine 0.8 mg/dL (0.6-1.0) Estimated GFR (Cockcroft-Gault) 90.8 Glucose Level 216 mg/dL (70-99) Calcium Level 8.3 mg/dL (8.5-10.1) Test 11/18/16 11:09 Glucose (Fingerstick) 214 mg/dL (70-99) Assessment and Plan Assessmemt and Plan Problems Medical Problems: (1) Wound, open, buttock Status: Acute Problems: Comment Review of Relevant I have reviewed the following items luther (where applicable) has been applied. Labs Laboratory Tests Test 11/16/16 15:33 11/16/16 15:40 11/16/16 17:48 11/16/16 19:17 Urine Collection Type Unknown Urine Color Yellow Urine Clarity Clear Urine pH 7.0 Urine Specific [place] >=1.030 Urine Protein Negative mg/dL (NEG-TRACE) Urine Glucose (UA) >=1000 mg/dL (NEG) Urine Ketones (Stick) Negative mg/dL (NEG) Urine Blood Negative (NEG) Urine Nitrite Negative (NEG) Urine Bilirubin Negative (NEG) Urine Urobilinogen Dipstick 0.2 mg/dL (0.2 mg/dL) Urine Leukocyte Esterase Negative (NEG) Urine RBC 0 /HPF (0-2) Urine WBC 1-4 /HPF (0-4) Urine Squamous Epithelial Cells Few /LPF Urine Amorphous Sediment Present /HPF Urine Bacteria Few /HPF (0-FEW) Urine Opiates Screen Neg (NEG) Urine Methadone Screen Neg (NEG) Urine Barbiturates Neg (NEG) Urine Phencyclidine Screen Neg (NEG) Urine Amphetamine/Methamphetamine Neg (NEG) Urine Benzodiazepines Screen Neg (NEG) Urine Cocaine Screen Pos (NEG) Urine Cannabinoids Screen Neg (NEG) Urine Ethyl Alcohol Neg (NEG) White Blood Count 7.7 x10^3/uL (4.0-11.0) Red Blood Count 4.90 x10^6/uL (3.50-5.40) Hemoglobin 14.2 g/dL (12.0-15.5) Hematocrit 44.1 % (36.0-47.0) Mean Corpuscular Volume 90 fL (79-100) Mean Corpuscular Hemoglobin 29 pg (25-35) Mean Corpuscular Hemoglobin Concent 32 g/dL (31-37) Red Cell Distribution Width 14.0 % (11.5-14.5) Platelet Count 193 x10^3/uL (140-400) Neutrophils (%) (Auto) 72 % (31-73) Lymphocytes (%) (Auto) 20 % (24-48) Monocytes (%) (Auto) 6 % (0-9) Eosinophils (%) (Auto) 1 % (0-3) Basophils (%) (Auto) 1 % (0-3) Neutrophils # (Auto) 5.6 x10^3uL (1.8-7.7) Lymphocytes # (Auto) 1.6 x10^3/uL (1.0-4.8) Monocytes # (Auto) 0.4 x10^3/uL (0.0-1.1) Eosinophils # (Auto) 0.1 x10^3/uL (0.0-0.7) Basophils # (Auto) 0.1 x10^3/uL (0.0-0.2) Prothrombin Time 11.1 SEC (11.7-14.0) Prothromb Time International Ratio 0.9 (0.8-1.1) Sodium Level 134 mmol/L (136-145) Potassium Level 4.0 mmol/L (3.5-5.1) Chloride Level 97 mmol/L (98-107) Carbon Dioxide Level 32 mmol/L (21-32) Anion Gap 5 (6-14) Blood Urea Nitrogen 10 mg/dL (7-20) Creatinine 1.0 mg/dL (0.6-1.0) Estimated GFR (Cockcroft-Gault) 70.2 BUN/Creatinine Ratio 10 (6-20) Glucose Level 588 mg/dL (70-99) Calcium Level 9.6 mg/dL (8.5-10.1) Magnesium Level 2.1 mg/dL (1.8-2.4) Total Bilirubin 0.3 mg/dL (0.2-1.0) Aspartate Amino Transf (AST/SGOT) 12 U/L (15-37) Alanine Aminotransferase (ALT/SGPT) 21 U/L (14-59) Alkaline Phosphatase 200 U/L (46-116) Creatine Kinase 135 U/L (26-192) Creatine Kinase MB (Mass) 0.9 ng/mL (0.0-3.6) Creatine Kinase MB Relative Index 0.7 % (0-4) Troponin I Quantitative 0.018 ng/mL (0.000-0.055) JG-Wxt-G-Type Natriuretic Peptide 29 pg/mL (0-124) Total Protein 8.2 g/dL (6.4-8.2) Albumin 3.3 g/dL (3.4-5.0) Albumin/Globulin Ratio 0.7 (1.0-1.7) Glucose (Fingerstick) 380 mg/dL (70-99) 369 mg/dL (70-99) Test 11/16/16 20:42 11/17/16 07:44 11/17/16 07:46 11/17/16 11:35 Glucose (Fingerstick) 328 mg/dL (70-99) 207 mg/dL (70-99) 209 mg/dL (70-99) White Blood Count 7.1 x10^3/uL (4.0-11.0) Red Blood Count 4.15 x10^6/uL (3.50-5.40) Hemoglobin 11.9 g/dL (12.0-15.5) Hematocrit 37.1 % (36.0-47.0) Mean Corpuscular Volume 89 fL (79-100) Mean Corpuscular Hemoglobin 29 pg (25-35) Mean Corpuscular Hemoglobin Concent 32 g/dL (31-37) Red Cell Distribution Width 13.9 % (11.5-14.5) Platelet Count 163 x10^3/uL (140-400) Neutrophils (%) (Auto) 64 % (31-73) Lymphocytes (%) (Auto) 28 % (24-48) Monocytes (%) (Auto) 6 % (0-9) Eosinophils (%) (Auto) 2 % (0-3) Basophils (%) (Auto) 1 % (0-3) Neutrophils # (Auto) 4.6 x10^3uL (1.8-7.7) Lymphocytes # (Auto) 2.0 x10^3/uL (1.0-4.8) Monocytes # (Auto) 0.4 x10^3/uL (0.0-1.1) Eosinophils # (Auto) 0.1 x10^3/uL (0.0-0.7) Basophils # (Auto) 0.0 x10^3/uL (0.0-0.2) Sodium Level 138 mmol/L (136-145) Potassium Level 3.6 mmol/L (3.5-5.1) Chloride Level 105 mmol/L (98-107) Carbon Dioxide Level 29 mmol/L (21-32) Anion Gap 4 (6-14) Blood Urea Nitrogen 6 mg/dL (7-20) Creatinine 0.6 mg/dL (0.6-1.0) Estimated GFR (Cockcroft-Gault) 126.5 Glucose Level 220 mg/dL (70-99) Calcium Level 8.6 mg/dL (8.5-10.1) Test 11/17/16 17:04 11/17/16 21:31 11/18/16 04:35 11/18/16 07:56 Glucose (Fingerstick) 191 mg/dL (70-99) 244 mg/dL (70-99) 218 mg/dL (70-99) White Blood Count 7.2 x10^3/uL (4.0-11.0) Red Blood Count 4.21 x10^6/uL (3.50-5.40) Hemoglobin 12.0 g/dL (12.0-15.5) Hematocrit 37.3 % (36.0-47.0) Mean Corpuscular Volume 89 fL (79-100) Mean Corpuscular Hemoglobin 29 pg (25-35) Mean Corpuscular Hemoglobin Concent 32 g/dL (31-37) Red Cell Distribution Width 14.0 % (11.5-14.5) Platelet Count 166 x10^3/uL (140-400) Neutrophils (%) (Auto) 66 % (31-73) Lymphocytes (%) (Auto) 25 % (24-48) Monocytes (%) (Auto) 8 % (0-9) Eosinophils (%) (Auto) 2 % (0-3) Basophils (%) (Auto) 0 % (0-3) Neutrophils # (Auto) 4.7 x10^3uL (1.8-7.7) Lymphocytes # (Auto) 1.8 x10^3/uL (1.0-4.8) Monocytes # (Auto) 0.6 x10^3/uL (0.0-1.1) Eosinophils # (Auto) 0.1 x10^3/uL (0.0-0.7) Basophils # (Auto) 0.0 x10^3/uL (0.0-0.2) Sodium Level 137 mmol/L (136-145) Potassium Level 4.0 mmol/L (3.5-5.1) Chloride Level 103 mmol/L (98-107) Carbon Dioxide Level 29 mmol/L (21-32) Anion Gap 5 (6-14) Blood Urea Nitrogen 11 mg/dL (7-20) Creatinine 0.8 mg/dL (0.6-1.0) Estimated GFR (Cockcroft-Gault) 90.8 Glucose Level 216 mg/dL (70-99) Calcium Level 8.3 mg/dL (8.5-10.1) Test 11/18/16 11:09 Glucose (Fingerstick) 214 mg/dL (70-99) Laboratory Tests Test 11/17/16 17:04 11/17/16 21:31 11/18/16 04:35 11/18/16 07:56 Glucose (Fingerstick) 191 mg/dL (70-99) 244 mg/dL (70-99) 218 mg/dL (70-99) White Blood Count 7.2 x10^3/uL (4.0-11.0) Red Blood Count 4.21 x10^6/uL (3.50-5.40) Hemoglobin 12.0 g/dL (12.0-15.5) Hematocrit 37.3 % (36.0-47.0) Mean Corpuscular Volume 89 fL (79-100) Mean Corpuscular Hemoglobin 29 pg (25-35) Mean Corpuscular Hemoglobin Concent 32 g/dL (31-37) Red Cell Distribution Width 14.0 % (11.5-14.5) Platelet Count 166 x10^3/uL (140-400) Neutrophils (%) (Auto) 66 % (31-73) Lymphocytes (%) (Auto) 25 % (24-48) Monocytes (%) (Auto) 8 % (0-9) Eosinophils (%) (Auto) 2 % (0-3) Basophils (%) (Auto) 0 % (0-3) Neutrophils # (Auto) 4.7 x10^3uL (1.8-7.7) Lymphocytes # (Auto) 1.8 x10^3/uL (1.0-4.8) Monocytes # (Auto) 0.6 x10^3/uL (0.0-1.1) Eosinophils # (Auto) 0.1 x10^3/uL (0.0-0.7) Basophils # (Auto) 0.0 x10^3/uL (0.0-0.2) Sodium Level 137 mmol/L (136-145) Potassium Level 4.0 mmol/L (3.5-5.1) Chloride Level 103 mmol/L (98-107) Carbon Dioxide Level 29 mmol/L (21-32) Anion Gap 5 (6-14) Blood Urea Nitrogen 11 mg/dL (7-20) Creatinine 0.8 mg/dL (0.6-1.0) Estimated GFR (Cockcroft-Gault) 90.8 Glucose Level 216 mg/dL (70-99) Calcium Level 8.3 mg/dL (8.5-10.1) Test 11/18/16 11:09 Glucose (Fingerstick) 214 mg/dL (70-99) Microbiology 11/16/16 Gram Stain - Final, Complete Medications Current Medications Sodium Chloride 1,000 ml @ 1,000 mls/hr 1X ONCE IV Last administered on t 15:48; Start 11/16/16 at 15:45; Stop 11/16/16 at 16:44; Status DC Sodium Chloride 1,000 ml @ 1,000 mls/hr 1X ONCE IV Last administered on 17:21; Start 11/16/16 at 16:45; Stop 11/16/16 at 17:44; Status DC Sodium Chloride 1,000 ml @ 1,000 mls/hr 1X ONCE IV Last administered on 18:00; Start 11/16/16 at 16:45; Stop 11/16/16 at 17:44; Status DC Ondansetron HCl (Zofran) 4 mg PRN Q8HRS PRN IV NAUSEA/VOMITING; Start 11/16/16 at 17:30; Stop 11/17/16 at 17:29; Status DC Morphine Sulfate 2 mg PRN Q2HR PRN IV PAIN; Start 11/16/16 at 17:30; Stop 11/16 at 23:47; Status DC Acetaminophen (Tylenol) 650 mg PRN Q4HRS PRN PO FEVER Last administered on 11/17 14:56; Start 11/16/16 at 17:30; Stop 11/17/16 at 17:29; Status DC Insulin Aspart (NovoLOG) 0-5 UNITS TIDWMEALS SQ Last administered on 11/16/16 18:30; Start 11/16/16 at 17:21; Stop 11/16/16 at 23:47; Status DC Dextrose (Dextrose 50%-Water Syringe) 12.5 gm PRN Q15MIN PRN IV SEE COMMENTS; Start 11/16/16 at 17:30; Stop 11/17/16 at 12:31; Status DC Sodium Chloride 1,000 ml @ 125 mls/hr 1X ONCE IV Last administered on 18:00; Start 11/16/16 at 17:30; Stop 11/17/16 at 01:29; Status DC Insulin Aspart (NovoLOG) 3 units 1X ONCE SQ Last administered on 11/16/16 21: 55; Start 11/16/16 at 21:45; Stop 11/16/16 at 21:46; Status DC Zolpidem Tartrate (Ambien) 5 mg PRN QHS PRN PO INSOMNIA Last administered on 22:51; Start 11/16/16 at 23:30 Insulin Aspart (NovoLOG) TIDWMEALS SQ Last administered on 11/17/16 12:18; Start 11/17/16 at 08:00; Stop 11/17/16 at 12:32; Status DC Dextrose (Dextrose 50%-Water Syringe) 12.5 gm PRN Q15MIN PRN IV SEE COMMENTS; Start 11/16/16 at 23:45; Stop 11/17/16 at 12:31; Status DC Duloxetine HCl (Cymbalta) 60 mg DAILY PO Last administered on 11/18/16 08:48; Start 11/17/16 at 09:00 Lisinopril (Prinivil) 10 mg DAILY PO Last administered on 11/17/16 08:45; Start 11/17/16 at 09:00; Stop 11/17/16 at 14:17; Status DC Glipizide (Glucotrol) 10 mg BIDBFRMEAL PO Last administered on 11/18/16 08:49 ; Start 11/17/16 at 07:30 Info (Do NOT chart on this placeholder) 1 each 1X ONCE MC ; Start 11/17/16 at 09:00; Stop 11/17/16 at 09:01; Status UNV Influenza Virus Vaccine Quadrival (Fluarix Quad 6381-2337 Syringe) 0.5 ml ONCE ONCE VAX IM Last administered on 11/17/16 14:58; Start 11/17/16 at 09:00; Stop 11/17/16 at 09:01; Status DC Insulin Detemir (Levemir) 10 units QHS SQ Last administered on 11/17/16 22:56 ; Start 11/17/16 at 21:00 Insulin Aspart (NovoLOG) 0-9 UNITS TIDWMEALS SQ Last administered on 11/18/16 12:22; Start 11/17/16 at 17:00 Dextrose (Dextrose 50%-Water Syringe) 12.5 gm PRN Q15MIN PRN IV SEE COMMENTS; Start 11/17/16 at 12:30 Trimethoprim/ Sulfamethoxazole (Bactrim Ds) 1 tab BID PO Last administered on 11/18/16 08:48; Start 11/17/16 at 13:00 Lisinopril (Prinivil) 20 mg DAILY PO Last administered on 11/18/16 08:48; Start 11/17/16 at 15:00 Acetaminophen (Tylenol) 650 mg PRN Q6HRS PRN PO FEVER; Start 11/17/16 at 14:15 Ondansetron HCl (Zofran) 4 mg PRN Q6HRS PRN IV NAUSEA/VOMITING; Start 11/17/16 at 14:15 Morphine Sulfate 2 mg PRN Q2HR PRN IV PAIN; Start 11/17/16 at 14:15 Tramadol HCl (Ultram) 50 mg PRN Q6HRS PRN PO PAIN; Start 11/17/16 at 14:15 Hydralazine HCl (Apresoline) 10 mg PRN Q4HRS PRN IVP ELEVATED BP, SEE COMMENTS ; Start 11/17/16 at 14:15 Docusate Sodium (Colace) 100 mg PRN DAILY PRN PO CONSTIPATION; Start 11/17/16 at 14:15 Enoxaparin Sodium (Lovenox 40mg Syringe) 40 mg Q24H SQ Last administered on 14:56; Start 11/17/16 at 15:00 Insulin Aspart (NovoLOG) 3 units 1X ONCE SQ Last administered on 11/17/16 22: 57; Start 11/17/16 at 23:00; Stop 11/17/16 at 23:01; Status DC Active Scripts Active Reported Saphris (Asenapine Maleate) 10 Mg Tab.subl 110 PO HS Vitals/I & O Vital Sign - Last 24 Hours 11/17/16 11/17/16 11/17/16 11/17/16 14:55 15:22 19:00 20:00 Temp 98.9 97.9 98.9 97.9 Pulse 73 90 85 Resp 20 18 B/P (MAP) 137/71 146/76 (99) 150/69 (96) Pulse Ox 97 95 O2 Delivery Room Air Room Air Room Air 11/17/16 11/18/16 11/18/16 11/18/16 23:00 03:00 07:00 07:55 Temp 97.7 97.6 98.4 97.7 97.6 98.4 Pulse 82 78 78 Resp 16 20 16 B/P (MAP) 135/72 (93) 144/81 (102) 131/60 (83) Pulse Ox 98 98 97 O2 Delivery Room Air Room Air Room Air Room Air 11/18/16 11/18/16 08:48 11:00 Temp 98.8 98.8 Pulse 78 74 Resp 16 B/P (MAP) 131/60 120/63 (82) Pulse Ox 97 O2 Delivery Room Air Intake and Output 11/18/16 11/18/16 11/19/16 15:00 23:00 07:00 Intake Total 360 ml Balance 360 ml NAVDEEP KISER MD Nov 18, 2016 14:44
[2016-11-18 15:00] VITALS: BP 135/75
[2016-11-18] MEDS: CEFPODOXIME PROXETIL 100 MG TABLET. PO SCH ×2 (16:13→20:46)
[2016-11-18] MEDS: traMADol 50 MG TABLET PO PRN (17:02)
[2016-11-18 19:05] VITALS: BP 134/82
[2016-11-18] MEDS: ZOLPIDEM 5 MG TABLET. PO PRN (20:46)
[2016-11-18] MEDS: INSULIN DETEMIR 300 UNITS/3 ML INSULN.PEN. SQ SCH (20:51)
[2016-11-18] MEDS ORDERED: INSULIN ASPART 300 UNITS/3 ML INSULN.PEN SQ ONE (21:00)
[2016-11-18 23:30] VITALS: BP 141/88
[2016-11-19] MEDS: traMADol 50 MG TABLET PO PRN ×3 (00:20→14:17)
[2016-11-19 07:00] VITALS: BP 137/80
[2016-11-19] MEDS: SMZ/TMP 800/160MG TABLET. PO SCH ×2 (08:28→21:21)
[2016-11-19] MEDS: CEFPODOXIME PROXETIL 100 MG TABLET. PO SCH ×2 (08:28→21:21)
[2016-11-19] MEDS: glipiZIDE 5 MG TABLET PO SCH ×2 (08:28→17:40)
[2016-11-19] MEDS: DULoxetine HCL 30 MG CAPSULE.DR PO SCH (08:29)
[2016-11-19] MEDS: LISINOPRIL 20 MG TABLET PO SCH (08:29)
[2016-11-19] MEDS: INSULIN ASPART 300 UNITS/3 ML INSULN.PEN SQ SCH ×3 (08:33→17:42)
[2016-11-19 11:00] VITALS: BP 123/73
--- NOTE | 2016-11-19 11:52 | PDOC ---
PROGRESS NOTES Chief Complaint Chief Complaint bl buttock wound a , + gram + cocci with staph and beta strep for now uncontrolled dm2 accellerated htn drug abuse with cocaine suspect noncompliance meds History of Present Illness History of Present Illness hba1c > 11 cont glipizide, add levmier 15u qhs, ssi. metformin makes her diarrhea, blood sugar control now near excellent, suspect noncompliance meds wound care pending add bactrium , add vantin add lisinopril 20mg daily dvt ppx dc tmr Vitals Vitals Vital Signs Date Time Temp Pulse Resp B/P (MAP) Pulse Ox O2 Delivery O2 Flow Rate FiO2 11/19/16 11:00 97.4 69 16 123/73 (90) 97 Room Air 97.4 Physical Exam General: Alert, Oriented X3, Cooperative, mild distress Heart: Regular rate, Normal S1, Normal S2 Lungs: Clear, Wheezing Abdomen: Normal bowel sounds, Soft Extremities: No clubbing, No cyanosis Skin: Other (bl small superfical buttock wound ) Labs LABS Laboratory Tests Test 11/18/16 16:30 11/18/16 20:41 11/19/16 07:08 11/19/16 11:17 Glucose (Fingerstick) 164 mg/dL (70-99) 214 mg/dL (70-99) 154 mg/dL (70-99) 139 mg/dL (70-99) Review of Systems Review of Systems ROS: no fever, chills, sob or chest pain hyperglycemia better pain 09/20, needs add;l meds Assessment and Plan Assessmemt and Plan Problems Medical Problems: (1) Wound, open, buttock Status: Acute Problems: Comment Review of Relevant I have reviewed the following items luther (where applicable) has been applied. Labs Laboratory Tests Test 11/17/16 17:04 11/17/16 21:31 11/18/16 04:35 11/18/16 07:56 Glucose (Fingerstick) 191 mg/dL (70-99) 244 mg/dL (70-99) 218 mg/dL (70-99) White Blood Count 7.2 x10^3/uL (4.0-11.0) Red Blood Count 4.21 x10^6/uL (3.50-5.40) Hemoglobin 12.0 g/dL (12.0-15.5) Hematocrit 37.3 % (36.0-47.0) Mean Corpuscular Volume 89 fL (79-100) Mean Corpuscular Hemoglobin 29 pg (25-35) Mean Corpuscular Hemoglobin Concent 32 g/dL (31-37) Red Cell Distribution Width 14.0 % (11.5-14.5) Platelet Count 166 x10^3/uL (140-400) Neutrophils (%) (Auto) 66 % (31-73) Lymphocytes (%) (Auto) 25 % (24-48) Monocytes (%) (Auto) 8 % (0-9) Eosinophils (%) (Auto) 2 % (0-3) Basophils (%) (Auto) 0 % (0-3) Neutrophils # (Auto) 4.7 x10^3uL (1.8-7.7) Lymphocytes # (Auto) 1.8 x10^3/uL (1.0-4.8) Monocytes # (Auto) 0.6 x10^3/uL (0.0-1.1) Eosinophils # (Auto) 0.1 x10^3/uL (0.0-0.7) Basophils # (Auto) 0.0 x10^3/uL (0.0-0.2) Sodium Level 137 mmol/L (136-145) Potassium Level 4.0 mmol/L (3.5-5.1) Chloride Level 103 mmol/L (98-107) Carbon Dioxide Level 29 mmol/L (21-32) Anion Gap 5 (6-14) Blood Urea Nitrogen 11 mg/dL (7-20) Creatinine 0.8 mg/dL (0.6-1.0) Estimated GFR (Cockcroft-Gault) 90.8 Glucose Level 216 mg/dL (70-99) Hemoglobin A1c 11.2 % (4.8-5.6) Calcium Level 8.3 mg/dL (8.5-10.1) Test 11/18/16 11:09 11/18/16 16:30 11/18/16 20:41 11/19/16 07:08 Glucose (Fingerstick) 214 mg/dL (70-99) 164 mg/dL (70-99) 214 mg/dL (70-99) 154 mg/dL (70-99) Test 11/19/16 11:17 Glucose (Fingerstick) 139 mg/dL (70-99) Laboratory Tests Test 11/18/16 16:30 11/18/16 20:41 11/19/16 07:08 11/19/16 11:17 Glucose (Fingerstick) 164 mg/dL (70-99) 214 mg/dL (70-99) 154 mg/dL (70-99) 139 mg/dL (70-99) Microbiology 11/16/16 Gram Stain - Final, Complete Medications Current Medications Sodium Chloride 1,000 ml @ 1,000 mls/hr 1X ONCE IV Last administered on 15:48; Start 11/16/16 at 15:45; Stop 11/16/16 at 16:44; Status DC Sodium Chloride 1,000 ml @ 1,000 mls/hr 1X ONCE IV Last administered on 17:21; Start 11/16/16 at 16:45; Stop 11/16/16 at 17:44; Status DC Sodium Chloride 1,000 ml @ 1,000 mls/hr 1X ONCE IV Last administered on 18:00; Start 11/16/16 at 16:45; Stop 11/16/16 at 17:44; Status DC Ondansetron HCl (Zofran) 4 mg PRN Q8HRS PRN IV NAUSEA/VOMITING; Start 11/16/16 at 17:30; Stop 11/17/16 at 17:29; Status DC Morphine Sulfate 2 mg PRN Q2HR PRN IV PAIN; Start 11/16/16 at 17:30; Stop 11/16 at 23:47; Status DC Acetaminophen (Tylenol) 650 mg PRN Q4HRS PRN PO FEVER Last administered on 11/17 14:56; Start 11/16/16 at 17:30; Stop 11/17/16 at 17:29; Status DC Insulin Aspart (NovoLOG) 0-5 UNITS TIDWMEALS SQ Last administered on 11/16/16 18:30; Start 11/16/16 at 17:21; Stop 11/16/16 at 23:47; Status DC Dextrose (Dextrose 50%-Water Syringe) 12.5 gm PRN Q15MIN PRN IV SEE COMMENTS; Start 11/16/16 at 17:30; Stop 11/17/16 at 12:31; Status DC Sodium Chloride 1,000 ml @ 125 mls/hr 1X ONCE IV Last administered on 18:00; Start 11/16/16 at 17:30; Stop 11/17/16 at 01:29; Status DC Insulin Aspart (NovoLOG) 3 units 1X ONCE SQ Last administered on 11/16/16 21: 55; Start 11/16/16 at 21:45; Stop 11/16/16 at 21:46; Status DC Zolpidem Tartrate (Ambien) 5 mg PRN QHS PRN PO INSOMNIA Last administered on 20:46; Start 11/16/16 at 23:30 Insulin Aspart (NovoLOG) TIDWMEALS SQ Last administered on 11/17/16 12:18; Start 11/17/16 at 08:00; Stop 11/17/16 at 12:32; Status DC Dextrose (Dextrose 50%-Water Syringe) 12.5 gm PRN Q15MIN PRN IV SEE COMMENTS; Start 11/16/16 at 23:45; Stop 11/17/16 at 12:31; Status DC Duloxetine HCl (Cymbalta) 60 mg DAILY PO Last administered on 11/19/16 08:29; Start 11/17/16 at 09:00 Lisinopril (Prinivil) 10 mg DAILY PO Last administered on 11/17/16 08:45; Start 11/17/16 at 09:00; Stop 11/17/16 at 14:17; Status DC Glipizide (Glucotrol) 10 mg BIDBFRMEAL PO Last administered on 11/19/16 08:28 ; Start 11/17/16 at 07:30 Info (Do NOT chart on this placeholder) 1 each 1X ONCE MC ; Start 11/17/16 at 09:00; Stop 11/17/16 at 09:01; Status UNV Influenza Virus Vaccine Quadrival (Fluarix Quad [id number] Syringe) 0.5 ml ONCE ONCE VAX IM Last administered on 11/17/16 14:58; Start 11/17/16 at 09:00; Stop 11/17/16 at 09:01; Status DC Insulin Detemir (Levemir) 10 units QHS SQ Last administered on 11/17/16 22:56 ; Start 11/17/16 at 21:00; Stop 11/18/16 at 14:42; Status DC Insulin Aspart (NovoLOG) 0-9 UNITS TIDWMEALS SQ Last administered on 11/19/16 08:33; Start 11/17/16 at 17:00 Dextrose (Dextrose 50%-Water Syringe) 12.5 gm PRN Q15MIN PRN IV SEE COMMENTS; Start 11/17/16 at 12:30 Trimethoprim/ Sulfamethoxazole (Bactrim Ds) 1 tab BID PO Last administered on 11/19/16 08:28; Start 11/17/16 at 13:00 Lisinopril (Prinivil) 20 mg DAILY PO Last administered on 11/19/16 08:29; Start 11/17/16 at 15:00 Acetaminophen (Tylenol) 650 mg PRN Q6HRS PRN PO FEVER Last administered on 11/18 20:46; Start 11/17/16 at 14:15 Ondansetron HCl (Zofran) 4 mg PRN Q6HRS PRN IV NAUSEA/VOMITING; Start 11/17/16 at 14:15 Morphine Sulfate 2 mg PRN Q2HR PRN IV PAIN; Start 11/17/16 at 14:15 Tramadol HCl (Ultram) 50 mg PRN Q6HRS PRN PO PAIN Last administered on 08:28; Start 11/17/16 at 14:15 Hydralazine HCl (Apresoline) 10 mg PRN Q4HRS PRN IVP ELEVATED BP, SEE COMMENTS ; Start 11/17/16 at 14:15 Docusate Sodium (Colace) 100 mg PRN DAILY PRN PO CONSTIPATION; Start 11/17/16 at 14:15 Enoxaparin Sodium (Lovenox 40mg Syringe) 40 mg Q24H SQ Last administered on 14:41; Start 11/17/16 at 15:00 Insulin Aspart (NovoLOG) 3 units 1X ONCE SQ Last administered on 11/17/16 22: 57; Start 11/17/16 at 23:00; Stop 11/17/16 at 23:01; Status DC Insulin Detemir (Levemir) 15 units QHS SQ Last administered on 11/18/16 20:51 ; Start 11/18/16 at 21:00 Cefpodoxime Proxetil (Vantin) 200 mg BID PO Last administered on 11/19/16 08: 28; Start 11/18/16 at 15:00 Insulin Aspart (NovoLOG) 3 units 1X ONCE SQ Last administered on 11/18/16 20: 52; Start 11/18/16 at 21:00; Stop 11/18/16 at 21:01; Status DC Active Scripts Active Reported Saphris (Asenapine Maleate) 10 Mg Tab.subl 110 PO HS Vitals/I & O Vital Sign - Last 24 Hours 11/18/16 11/18/16 11/18/16 11/18/16 15:00 17:02 19:05 20:00 Temp 98.9 99.0 98.9 99.0 Pulse 77 82 Resp 16 16 B/P (MAP) 135/75 (95) 134/82 (99) Pulse Ox 96 96 O2 Delivery Room Air Room Air Room Air Room Air 11/18/16 11/19/16 11/19/16 11/19/16 23:30 07:00 07:25 08:28 Temp 97.5 98.9 97.5 98.9 Pulse 70 69 Resp 18 16 B/P (MAP) 141/88 (105) 137/80 (99) Pulse Ox 98 O2 Delivery Room Air Room Air Room Air Room Air 11/19/16 11/19/16 11/19/16 08:29 09:45 11:00 Temp 97.4 97.4 Pulse 69 69 Resp 16 B/P (MAP) 137/80 123/73 (90) Pulse Ox 97 O2 Delivery Room Air Room Air Intake and Output 11/19/16 11/19/16 11/20/16 14:59 22:59 06:59 Intake Total 120 ml Balance 120 ml HORTENCIA ASHLEY MD Nov 19, 2016 11:52
[2016-11-19] MEDS: ENOXAPARIN 40 MG/0.4 ML SYRINGE. SQ SCH (14:17)
[2016-11-19 15:00] VITALS: BP 136/76
[2016-11-19 19:00] VITALS: BP 122/79
[2016-11-19] MEDS: INSULIN DETEMIR 300 UNITS/3 ML INSULN.PEN. SQ SCH (21:24)
[2016-11-19] MEDS: ZOLPIDEM 5 MG TABLET. PO PRN (21:25)
[2016-11-19 23:00] VITALS: BP 111/63
[2016-11-20] MEDS: NEOMY/BACITR/POLYMYXIN OINT PACKET. TP SCH ×2 (00:26→09:37)
[2016-11-20 03:00] VITALS: BP 100/62
[2016-11-20 07:00] VITALS: BP 132/72
[2016-11-20] MEDS: LISINOPRIL 20 MG TABLET PO SCH (09:37)
[2016-11-20] MEDS: DULoxetine HCL 30 MG CAPSULE.DR PO SCH (09:37)
[2016-11-20] MEDS: SMZ/TMP 800/160MG TABLET. PO SCH (09:37)
[2016-11-20] MEDS: glipiZIDE 5 MG TABLET PO SCH (09:37)
[2016-11-20] MEDS: CEFPODOXIME PROXETIL 100 MG TABLET. PO SCH (09:38)
[2016-11-20] MEDS: INSULIN ASPART 300 UNITS/3 ML INSULN.PEN SQ SCH ×2 (09:46→12:54)
[2016-11-20] MEDS ORDERED: TRAM50TA PO (10:54)
[2016-11-20] MEDS ORDERED: CEFP100T PO (10:54)
[2016-11-20] MEDS ORDERED: GLIP5TAB10 PO (10:54)
[2016-11-20] MEDS ORDERED: LISI-334 PO (10:54)
--- NOTE | 2016-11-20 10:57 | PDOC3 ---
Discharge Summary Visit Information Date of Admission: Nov 16, 2016 Date of Discharge: Nov 20, 2016 Admitting Diagnosis: buttock pain Final Diagnosis bl buttock wound a , + gram + cocci with staph and beta strep for now uncontrolled dm2 accellerated htn drug abuse with cocaine suspect noncompliance meds Problems Medical Problems: (1) Wound, open, buttock Status: Acute Brief Hospital Course Allergies Allergies Coded Allergies Type Severity Reaction Last Updated Verified No Known Drug Allergies 11/16/16 No Vital Signs Vital Signs Date Time Temp Pulse Resp B/P (MAP) Pulse Ox O2 Delivery O2 Flow Rate FiO2 11/20/16 09:37 70 132/72 11/20/16 07:00 96.3 18 97 Room Air 96.3 Lab Results Laboratory Tests Test 11/18/16 11:09 11/18/16 16:30 11/18/16 20:41 11/19/16 07:08 Glucose (Fingerstick) 214 mg/dL (70-99) 164 mg/dL (70-99) 214 mg/dL (70-99) 154 mg/dL (70-99) Test 11/19/16 11:17 11/19/16 17:08 11/19/16 20:54 11/20/16 07:46 Glucose (Fingerstick) 139 mg/dL (70-99) 256 mg/dL (70-99) 168 mg/dL (70-99) 227 mg/dL (70-99) Laboratory Tests Test 11/19/16 11:17 11/19/16 17:08 11/19/16 20:54 11/20/16 07:46 Glucose (Fingerstick) 139 mg/dL (70-99) 256 mg/dL (70-99) 168 mg/dL (70-99) 227 mg/dL (70-99) Brief Hospital Course Ms. Hall is a 55 old female, Dm2, admit or buttock pain, wounds abx started, manager chinese, small abcess that was draining well, pain much improved at DC hba1c > 11 restart glipizide, add Lisinopril 20 DC on vantin also got bactrim here Discharge Information Condition at Discharge: Improved Follow Up: Weeks Disposition/Orders: D/C to Home Scheduled Asenapine Maleate (Saphris), 110 PO HS, (Reported) Scheduled PRN Tramadol Hcl (Tramadol Hcl), 50 MG PO PRN Q6HRS PRN for PAIN Patient Instructions Patient Instructions est primary care discussed at length, HORTENCIA ASHLEY MD Nov 20, 2016 10:57
[2016-11-20 11:00] VITALS: BP 132/76
== END 2016-11-20 16:00 | disposition home or self-care (01) | DRG 637 ==
LOC: ER 13:44 → 4 NORTH 17:01
PROVIDERS: ADMIT Internal Medicine Hematology & Oncology; ATTEND Internal Medicine Hematology & Oncology
DX: E11.65 Type 2 diabetes mellitus with hyperglycemia (principal); E11.00 Type 2 diabetes mellitus with hyperosmolarity without nonketotic hyperglycemic-hyperosmolar coma (NKHHC); B95.8 Unspecified staphylococcus as the cause of diseases classified elsewhere; E87.0 Hyperosmolality and hypernatremia; S31.829A Unspecified open wound of left buttock, initial encounter; S31.819A Unspecified open wound of right buttock, initial encounter; B96.89 Other specified bacterial agents as the cause of diseases classified elsewhere; X58.XXXA Exposure to other specified factors, initial encounter; F14.10 Cocaine abuse, uncomplicated; F17.210 Nicotine dependence, cigarettes, uncomplicated; F32.9 Major depressive disorder, single episode, unspecified; G47.00 Insomnia, unspecified; I10 Essential (primary) hypertension; M79.89 Other specified soft tissue disorders; R19.7 Diarrhea, unspecified; Z91.14 Patient's other noncompliance with medication regimen; Y93.89 Activity, other specified; Y92.89 Other specified places as the place of occurrence of the external cause; Y99.8 Other external cause status
CPT/HCPCS: 36415; 71010; 80048; 80053; 80307; 81001; 82553; 82962; 83036; 83735; 83880; 84484; 85025; 85610; 87071; 87075; 87186; 87205; 90686; 93005; 96360; 96361; 96372; J1650; J1815; J2405; J7030; 99285-25; G0479

== ENCOUNTER 2016-12-01 18:14 | Emergency (ER) | payer MEDICARE, OTHER ==
[~2016-12-01] VITALS: Ht 170.2 cm; Wt 95.3 kg
[~2016-12-01 18:14] MED LIST: ASEN10TA9 PO; CEFP100T PO; GLIP5TAB10 PO; LISI-334 PO; TRAM50TA PO
[2016-12-01] MEDS ORDERED: IV NORMAL SALINE 1000ML BAG 1,000 ML IV SCH (19:12)
[2016-12-01] MEDS ORDERED: KETOROLAC 30 MG/ML INJ. IV ONE (19:15)
[2016-12-01] MEDS ORDERED: FAMOTIDINE 20 MG/2 ML VIAL IVP ONE (19:15)
[2016-12-01] MEDS ORDERED: ONDANSETRON PF 4 MG/2 ML VIAL. IV ONE (19:15)
[2016-12-01 19:20] LABS: BILIRUBIN,URINE NEGATIVE (NEG); GLUCOSE,URINE >=1000 mg/dL (NEG); NITRITE,URINE NEGATIVE (NEG); PROTEIN,URINE NEGATIVE (NEG-TRACE)
--- NOTE | 2016-12-01 19:26 | PHYS DOC ---
Past Medical History Past Medical History: Diabetes-Type II, Hypertension Past Surgical History: Hysterectomy Additional Past Surgical Histo: UNKNOWN Alcohol Use: None Drug Use: None Adult General Chief Complaint Chief Complaint: NAUSEA/VOMITING/DIARRHA HPI HPI Patient is a 56 year old female who presents with complaint of headache and nausea. Patient states her symptoms started today upon awakening. Patient states that she has generalized headache. Patient denies associated weakness or numbness, difficulty with speech or swallowing, or vision changes with her headache. Patient states that she has history of diabetes and currently takes metformin for treatment. Patient states that she has not checked her blood sugar recently. Patient denies polydipsia or polyuria. The patient states that she has had nausea and decreased appetite but denies vomiting. Patient also states that she has had "hot flashes" throughout the day. Patient has not taken any medications to help with symptoms. Review of Systems Review of Systems Constitutional: Denies fever or chills [] Eyes: Denies change in visual acuity, redness, or eye pain [] HENT: Denies nasal congestion or sore throat [] Respiratory: Denies cough or shortness of breath [] Cardiovascular: Denies chest pain or edema[] GI: Nausea, anorexia, denies abdominal pain or diarrhea[] : Denies dysuria or hematuria [] Musculoskeletal: Denies back pain or joint pain [] Integument: Denies rash or skin lesions [] Neurologic: Headache, denies focal weakness or sensory changes [] Current Medications Current Medications Current Medications Medications (Trade) Dose Ordered Sig/Jean Start Time Stop Time Status Last Admin Dose Admin Famotidine (Pepcid) 20 mg 1X ONCE 12/01/16 19:15 12/01/16 19:20 DC 12/01/16 19:48 20 MG Ketorolac Tromethamine (Toradol) 30 mg 1X ONCE 12/01/16 19:15 12/01/16 19:20 DC 12/01/16 19:49 30 MG Ondansetron HCl (Zofran) 4 mg 1X ONCE 12/01/16 19:15 12/01/16 19:20 DC 12/01/16 19:48 4 MG Sodium Chloride 1,000 ml @ 1,000 mls/hr Q1H 12/01/16 19:12 12/01/16 20:11 DC 12/01/16 19:49 1,000 MLS/HR Allergies Allergies Allergies Coded Allergies Type Severity Reaction Last Updated Verified No Known Drug Allergies 11/16/16 No Physical Exam Physical Exam Constitutional: Well developed, well nourished, no acute distress, non-toxic appearance. [] HENT: Normocephalic, atraumatic, bilateral external ears normal, oropharynx moist, no oral exudates, nose normal. [] Eyes: PERRLA, EOMI, conjunctiva normal, no discharge. [] Neck: Normal range of motion, no tenderness, supple, no stridor. [] Cardiovascular:Heart rate regular rhythm, no murmur [] Lungs & Thorax: Bilateral breath sounds clear to auscultation [] Abdomen: Bowel sounds normal, soft, no tenderness, no masses, no pulsatile masses. [] Skin: Warm, dry, no erythema, no rash. [] Back: No tenderness, no CVA tenderness. [] Extremities: No tenderness, no cyanosis, no clubbing, ROM intact, no edema. [] Neurologic: Alert and oriented X 3, normal motor function, normal sensory function, no focal deficits noted. [] Current Patient Data Vital Signs Vital Signs Date Time Temp Pulse Resp B/P (MAP) Pulse Ox O2 Delivery O2 Flow Rate FiO2 12/01/16 20:28 70 18 169/79 (109) 97 Room Air 12/01/16 18:54 97.8 97.8 Lab Values Laboratory Tests Test 12/01/16 19:01 12/01/16 19:12 12/01/16 19:49 12/01/16 20:40 Urine Collection Type Void Urine Color Yellow Urine Clarity Clear Urine pH 6.0 Urine Specific Meigs >=1.030 Urine Protein Negative mg/dL (NEG-TRACE) Urine Glucose (UA) >=1000 mg/dL (NEG) Urine Ketones (Stick) Negative mg/dL (NEG) Urine Blood Negative (NEG) Urine Nitrite Negative (NEG) Urine Bilirubin Negative (NEG) Urine Urobilinogen Dipstick 1.0 mg/dL (0.2 mg/dL) Urine Leukocyte Esterase Negative (NEG) Urine RBC 0 /HPF (0-2) Urine WBC 1-4 /HPF (0-4) Urine Squamous Epithelial Cells Many /LPF Urine Bacteria Moderate /HPF (0-FEW) Urine Mucus Marked /LPF Glucose (Fingerstick) 308 mg/dL (70-99) H White Blood Count 6.8 x10^3/uL (4.0-11.0) Red Blood Count 4.32 x10^6/uL (3.50-5.40) Hemoglobin 12.6 g/dL (12.0-15.5) Hematocrit 38.5 % (36.0-47.0) Mean Corpuscular Volume 89 fL (79-100) Mean Corpuscular Hemoglobin 29 pg (25-35) Mean Corpuscular Hemoglobin Concent 33 g/dL (31-37) Red Cell Distribution Width 14.2 % (11.5-14.5) Platelet Count 174 x10^3/uL (140-400) Neutrophils (%) (Auto) 63 % (31-73) Lymphocytes (%) (Auto) 28 % (24-48) Monocytes (%) (Auto) 6 % (0-9) Eosinophils (%) (Auto) 2 % (0-3) Basophils (%) (Auto) 1 % (0-3) Neutrophils # (Auto) 4.3 x10^3uL (1.8-7.7) Lymphocytes # (Auto) 1.9 x10^3/uL (1.0-4.8) Monocytes # (Auto) 0.4 x10^3/uL (0.0-1.1) Eosinophils # (Auto) 0.1 x10^3/uL (0.0-0.7) Basophils # (Auto) 0.1 x10^3/uL (0.0-0.2) Sodium Level 139 mmol/L (136-145) Potassium Level 3.6 mmol/L (3.5-5.1) Chloride Level 102 mmol/L (98-107) Carbon Dioxide Level 31 mmol/L (21-32) Anion Gap 6 (6-14) Blood Urea Nitrogen 15 mg/dL (7-20) Creatinine 0.7 mg/dL (0.6-1.0) Estimated GFR (Cockcroft-Gault) 105.5 BUN/Creatinine Ratio 21 (6-20) H Glucose Level 273 mg/dL (70-99) H Calcium Level 8.7 mg/dL (8.5-10.1) Total Bilirubin 0.3 mg/dL (0.2-1.0) Aspartate Amino Transferase (AST) 10 U/L (15-37) L Alanine Aminotransferase (ALT) 13 U/L (14-59) L Alkaline Phosphatase 104 U/L (46-116) Total Protein 6.3 g/dL (6.4-8.2) L Albumin 2.6 g/dL (3.4-5.0) L Albumin/Globulin Ratio 0.7 (1.0-1.7) L Lipase 187 U/L (73-393) Laboratory Tests 12/01/16 19:49 Laboratory Tests 12/01/16 20:40 EKG EKG Interpreted by me: Heart rate 77, sinus rhythm, normal intervals, normal axis, no acute ST/T-wave abnormalities present Radiology/Procedures Radiology/Procedures Not performed[] Course & Med Decision Making Course & Med Decision Making Pertinent Labs and Imaging studies reviewed. (See chart for details) The patient was given IV fluids, Zofran, and Pepcid in the emergency department. On reevaluation, patient states that she feels better. The patient' s blood sugar was found to be moderately elevated in the emergency department and patient's urinalysis shows high specific gravity suggesting renal concentration. This is consistent with mild dehydration. The patient may also have a possible viral infection that could be contributing to her symptoms. The patient's exam however does not reveal findings concerning for acute surgical abdominal pathology. On reevaluation the patient states her symptoms have improved at this time. The patient was given prescription for Zofran and advised to continue on oral hydration at home and recommended follow-up in 2-3 days with primary doctor for recheck of blood sugar and to discuss possible need for change in diabetic regimen. Advised return emergency department for any worsening symptoms. Patient voiced understanding and in agreement with treatment plan. Dragon Disclaimer Dragon Disclaimer This electronic medical record was generated, in whole or in part, using a voice recognition dictation system. Departure Departure Impression: Primary Impression: Nausea Additional Impressions: Hyperglycemia Dehydration Disposition: 01 HOME, SELF-CARE Condition: IMPROVED Referrals: NO PCP (PCP) Patient Instructions: Dehydration, Adult, Hyperglycemia, Nausea, Adult Additional Instructions: Follow-up with your primary doctor in 2-3 days for reevaluation. Return to the emergency department for any worsening symptoms. Scripts Ondansetron (ZOFRAN ODT) 4 Mg Tab.rapdis 1 TAB SL Q8HRS Y for NAUSEA/VOMITING, #15 TAB Prov: LESA CELESTE MD 12/01/16 Problem Qualifiers LESA CELESTE MD Dec 01, 2016 19:26
[2016-12-01 19:29] LABS: RBC,URINE 0 /HPF (0-2)
[2016-12-01 19:30] LABS: BACTERIA,URINE MODERATE /HPF (0-FEW); SQUAMOUS EPITHELIAL CELL,UR MANY /LPF
[2016-12-01 19:55] LABS: BASO # 0.1 x10^3/uL (0.0-0.2); BASO % 1 % (0-3); EOS % 2 % (0-3); HEMATOCRIT 38.5 % (36.0-47.0); HEMOGLOBIN 12.6 g/dL (12.0-15.5); LYMPH # 1.9 x10^3/uL (1.0-4.8); LYMPH % 28 % (24-48); MEAN CORPUSCULAR HEMOGLOBIN 29 pg (25-35); MEAN CORPUSCULAR HGB CONC 33 g/dL (31-37); MEAN CORPUSCULAR VOLUME 89 fL (79-100); MONO % 6 % (0-9); NEUT % 63 % (31-73); PLATELET COUNT 174 x10^3/uL (140-400); RED BLOOD COUNT 4.32 x10^6/uL (3.50-5.40); RED CELL DISTRIBUTION WIDTH 14.2 % (11.5-14.5); WHITE BLOOD COUNT 6.8 x10^3/uL (4.0-11.0)
[2016-12-01 21:14] LABS: CALCIUM 8.7 mg/dL (8.5-10.1); CREATININE 0.7 mg/dL (0.6-1.0); GFR 105.5; POTASSIUM 3.6 mmol/L (3.5-5.1)
[2016-12-01 21:21] LABS: ALBUMIN 2.6 g/dL (3.4-5.0); ALBUMIN/GLOBULIN RATIO 0.7 (1.0-1.7); TOTAL BILIRUBIN 0.3 mg/dL (0.2-1.0); TOTAL PROTEIN 6.3 g/dL (6.4-8.2)
[2016-12-01] MEDS ORDERED: ONDA4TAB10 SL (21:57)
[2016-12-01 21:58] VITALS: BP 145/71
--- NOTE | 2016-12-02 12:09 | EKG ---
[facility] [address] [place] [address] Test Date: 2016-12-01 Test Time: 19:28:11 Pat Name: ALPHONSO VILLARREAL Department: Room: Gender: F Customer Account Technician: : [id number] Requested By: LESA CELESTE Order Number: [id number] Reading MD: Measurements Intervals [place] Rate: 77 P: 64 [place]: 156 QRS: 2 QRSD: 92 T: 51 QT: 396 QTc: 450 Interpretive Statements SINUS RHYTHM LEFT ATRIAL ABNORMALITY QRS(T) CONTOUR ABNORMALITY CANNOT RULE OUT ANTEROSEPTAL MYOCARDIAL DAMAGE RI6.01 Unconfirmed report No previous ECG available for comparison
== END 2016-12-01 22:10 | disposition home or self-care (01) ==
LOC: ER 18:14
DX: E86.0 Dehydration (principal); E11.65 Type 2 diabetes mellitus with hyperglycemia; R11.0 Nausea; I10 Essential (primary) hypertension; Z90.710 Acquired absence of both cervix and uterus
CPT/HCPCS: 36415; 80053; 81001; 82962; 83690; 85025; 87086; 93005; 96361; 96374; 96375; 99285; J1885; J2405; J7030; S0028

== ENCOUNTER → 2016-12-04 | Outpatient (CLI) | payer MEDICARE, OTHER ==
[2016-12-01 21:58] VITALS: BP 145/71
[~2016-12-04] MED LIST changes: +ONDA4TAB10 SL
== END | disposition home or self-care (01) ==
LOC: PMGWOUND 13:38
PROVIDERS: ATTEND Emergency Medicine Undersea and Hyperbaric Medicine
DX: E11.622 Type 2 diabetes mellitus with other skin ulcer (principal); L98.411 Non-pressure chronic ulcer of buttock limited to breakdown of skin; L89.303 Pressure ulcer of unspecified buttock, stage 3; B00.9 Herpesviral infection, unspecified; I10 Essential (primary) hypertension; E11.649 Type 2 diabetes mellitus with hypoglycemia without coma; F32.9 Major depressive disorder, single episode, unspecified; F14.10 Cocaine abuse, uncomplicated; F17.210 Nicotine dependence, cigarettes, uncomplicated
CPT/HCPCS: 97597; 99214

== ENCOUNTER → 2016-12-11 | Outpatient (CLI) | payer MEDICARE, OTHER ==
[2016-12-01 21:58] VITALS: BP 145/71
== END | disposition home or self-care (01) ==
LOC: PMGWOUND 12:05
PROVIDERS: ATTEND Emergency Medicine Undersea and Hyperbaric Medicine
DX: E11.622 Type 2 diabetes mellitus with other skin ulcer (principal); L98.411 Non-pressure chronic ulcer of buttock limited to breakdown of skin; B00.9 Herpesviral infection, unspecified; E78.00 Pure hypercholesterolemia, unspecified; F32.9 Major depressive disorder, single episode, unspecified; F41.9 Anxiety disorder, unspecified; I10 Essential (primary) hypertension; Z90.710 Acquired absence of both cervix and uterus
CPT/HCPCS: 99214

== ENCOUNTER → 2017-01-01 | Outpatient (CLI) | payer MEDICARE, OTHER | END | disposition home or self-care (01) | LOC: PMGWOUND 12:18 | PROVIDERS: ATTEND Emergency Medicine Undersea and Hyperbaric Medicine | DX: B00.9 Herpesviral infection, unspecified (principal); F41.9 Anxiety disorder, unspecified; F14.10 Cocaine abuse, uncomplicated; I10 Essential (primary) hypertension; F32.9 Major depressive disorder, single episode, unspecified; E78.00 Pure hypercholesterolemia, unspecified; F17.210 Nicotine dependence, cigarettes, uncomplicated; Z90.710 Acquired absence of both cervix and uterus | CPT/HCPCS: 99213 ==

== ENCOUNTER → 2017-03-13 | Outpatient (CLI) | payer MEDICARE, OTHER | END | disposition home or self-care (01) | LOC: MAMMO 12:21 | DX: Z12.31 Encounter for screening mammogram for malignant neoplasm of breast (principal) | CPT/HCPCS: 77067 ==

== ENCOUNTER 2017-03-17 11:42 | Emergency (ER) | payer OTHER, MEDICARE ==
[2017-03-17 12:27] LABS: POC GLUCOSE 330 mg/dL (70-99)
[2017-03-17 12:47] LABS: ADD MAN DIFF? NO
[2017-03-17 12:49] LABS: BASO # 0.1 x10^3/uL (0.0-0.2); BASO % 1 % (0-3); EOS # 0.1 x10^3/uL (0.0-0.7); EOS % 1 % (0-3); HEMATOCRIT 43.1 % (36.0-47.0); HEMOGLOBIN 14.5 g/dL (12.0-15.5); LYMPH % 22 % (24-48); MEAN CORPUSCULAR HEMOGLOBIN 29 pg (25-35); MEAN CORPUSCULAR HGB CONC 34 g/dL (31-37); MEAN CORPUSCULAR VOLUME 87 fL (79-100); MONO # 0.6 x10^3/uL (0.0-1.1); MONO % 7 % (0-9); NEUT # 6.3 x10^3uL (1.8-7.7); NEUT % 70 % (31-73); PLATELET COUNT 201 x10^3/uL (140-400); RED BLOOD COUNT 4.93 x10^6/uL (3.50-5.40); RED CELL DISTRIBUTION WIDTH 14.4 % (11.5-14.5); WHITE BLOOD COUNT 9.1 x10^3/uL (4.0-11.0)
[2017-03-17] MEDS: IV NORMAL SALINE 1000ML BAG 1,000 ML IV ×2 (13:03)
[2017-03-17 13:07] LABS: ANION GAP 8 (6-14); BLOOD UREA NITROGEN 24 mg/dL (7-20); CALCIUM 9.5 mg/dL (8.5-10.1); CARBON DIOXIDE 30 mmol/L (21-32); CHLORIDE 97 mmol/L (98-107); CREATININE 1.1 mg/dL (0.6-1.0); GFR 62.6; GLUCOSE 395 mg/dL (70-99); POTASSIUM 3.7 mmol/L (3.5-5.1); SODIUM 135 mmol/L (136-145)
[2017-03-17 13:12] LABS: ACETAMIN < 2.0 mcg/ml (10-30); ALBUMIN 3.7 g/dL (3.4-5.0); ALK PHOS 122 U/L (46-116); ALT (SGPT) 35 U/L (14-59); AST (SGOT) 36 U/L (15-37); DIRECT BILIRUBIN 0.1 mg/dL (0.0-0.2); ETHANOL < 10 mg/dL (0-10); LIPASE 178 U/L (73-393); SALIC < 2.8 mg/dL (2.8-20.0); TOTAL BILIRUBIN 0.5 mg/dL (0.2-1.0); TOTAL PROTEIN 8.7 g/dL (6.4-8.2)
[2017-03-17 14:13] LABS: BILIRUBIN,URINE NEGATIVE (NEG); CLARITY,URINE CLOUDY; COLOR,URINE YELLOW; GLUCOSE,URINE >=1000 mg/dL (NEG); NITRITE,URINE NEGATIVE (NEG); PH,URINE 5.5; PROTEIN,URINE NEGATIVE (NEG-TRACE); UROBILINOGEN,URINE 0.2 mg/dL (0.2 mg/dL)
[2017-03-17 14:17] LABS: BARBITURATES NEG (NEG); BENZODIAZEPINES NEG (NEG); CANNABINOIDS NEG (NEG); COCAINE POS (NEG); METHADONE NEG (NEG); OPIATES NEG (NEG); PHENCYCLIDINE NEG (NEG)
[2017-03-17 14:19] LABS: AMPHETAMINE/METHAMPHETAMINE NEG (NEG); ETHANOL, URINE NEG (NEG)
[2017-03-17 14:22] LABS: BACTERIA,URINE MODERATE /HPF (0-FEW); RBC,URINE 0 /HPF (0-2); SQUAMOUS EPITHELIAL CELL,UR MANY /LPF
[2017-03-17 15:38] LABS: POC GLUCOSE 280 mg/dL (70-99)
[2017-03-17] MEDS: INSULIN REGULAR 100 UNIT/ML 10ML VIAL. IV ×2 (15:53)
[2017-03-17 16:36] LABS: POC GLUCOSE 156 mg/dL (70-99)
[2017-03-17 18:06] LABS: AGAP ISTAT 16 mmol/L (6-14); BUN ISTAT 23 mg/dL (8-26); CHLORIDE ISTAT 102 mmol/L (98-110); CREATININE ISTAT 1.2 mg/dL (0.5-1.4); GLUCOSE ISTAT 188 mg/dL (70-99); HEMATOCRIT ISTAT 39 % (36-40); HEMOGLOBIN ISTAT 13.3 g/dL (12-15); ION CA ISTAT 1.16 mmol/L (1.13-1.32); POTASSIUM ISTAT 3.6 mmol/L (3.5-5.0); SODIUM ISTAT 141 mmol/L (135-145); TOT CO2 ISTAT 27 mmol/L (23-32)
== END 2017-03-17 19:40 | disposition short-term general hospital (02) ==
LOC: ER 11:42
DX: R45.851 Suicidal ideations (principal); F32.9 Major depressive disorder, single episode, unspecified; E11.65 Type 2 diabetes mellitus with hyperglycemia; I10 Essential (primary) hypertension
CPT/HCPCS: 36415; 80047; 80048; 80076; 80307; 80329; 81001; 82962; 83690; 85025; 87086; 96361; 96374; 99285-25; G0480; J1815; J7030

== ENCOUNTER → 2017-11-04 | Outpatient (CLI) | payer OTHER ==
[2017-05-18 12:33] VITALS: BP 122/70
[~2017-11-04] MED LIST changes: +ASEN10TA9 SL; +CANA300T PO; +DULO60CA6 PO; +LISI-338 PO; +PIOG30TA62 PO
--- NOTE | 2017-11-04 11:43 | RAD ---
Lumbar spine, 3 views, 11/04/2017: HISTORY: Low back pain The lumbar vertebral heights are well-maintained. There is severe disc space narrowing at L4-5 with endplate irregularity, sclerosis and spurring. There is moderate grade 1-2 spondylolisthesis at L4-5. Moderate facet joint arthropathy is evident in the lower lumbar spine. There is moderate disc space narrowing and spurring at L5-S1. Aortic calcific plaquing is present. IMPRESSION: 1. Moderate spondylolisthesis at L4-5 with severe associated degenerative disc disease at that level. 2. Moderate degenerative disc disease at L5-S1. Electronically signed by: Jose Cervantes MD (11/04/2017 11:39 AM) [facility]
== END | disposition home or self-care (01) ==
LOC: RAD 10:50
PROVIDERS: ATTEND Nurse Practitioner
DX: M43.16 Spondylolisthesis, lumbar region (principal); M51.36 Other intervertebral disc degeneration, lumbar region; M51.37 Other intervertebral disc degeneration, lumbosacral region; M48.07 Spinal stenosis, lumbosacral region; M46.07 Spinal enthesopathy, lumbosacral region; I10 Essential (primary) hypertension; E11.9 Type 2 diabetes mellitus without complications; E78.5 Hyperlipidemia, unspecified; E78.00 Pure hypercholesterolemia, unspecified; Z90.710 Acquired absence of both cervix and uterus; Z87.891 Personal history of nicotine dependence; Z83.3 Family history of diabetes mellitus; Z80.8 Family history of malignant neoplasm of other organs or systems
CPT/HCPCS: 72100